=== PATIENT | female | born 1945 | race Caucasian/White ===

== ENCOUNTER → 2016-08-13 | Outpatient (CLI) | payer OTHER, MEDICARE | LOC: FIMAGING 13:23 | PROVIDERS: ATTEND Physician Assistant | DX: S83.511A Sprain of anterior cruciate ligament of right knee, initial encounter (principal); S83.271A Complex tear of lateral meniscus, current injury, right knee, initial encounter; S83.241A Other tear of medial meniscus, current injury, right knee, initial encounter; M22.41 Chondromalacia patellae, right knee; M25.461 Effusion, right knee; M71.21 Synovial cyst of popliteal space [Baker], right knee; M70.41 Prepatellar bursitis, right knee ==

== ENCOUNTER → 2016-09-12 | Outpatient (CLI) | payer OTHER, MEDICARE | LOC: BMCIMAGING 10:01 | DX: Z12.31 Encounter for screening mammogram for malignant neoplasm of breast (principal); Z80.3 Family history of malignant neoplasm of breast | CPT/HCPCS: G0202 ==

== ENCOUNTER 2017-04-29 09:01 | Inpatient (IN) | payer OTHER, MEDICARE ==
--- NOTE | 2017-04-29 09:39 | CPEKG ---
Heart Rate: 83 RR Interval: 723 P-R Interval: 106 QRSD Interval: 80 QT Interval: 356 QTC Interval: 419 P Mason: 41 QRS Mason: 14 T Wave Mason: 94 EKG Severity - ABNORMAL ECG - EKG Impression: SINUS RHYTHM EKG Impression: SHORT MN INTERVAL, ACCELERATED AV CONDUCTION EKG Impression: CONSIDER POSTERIOR INFARCT EKG Impression: NONSPECIFIC REPOL ABNORMALITY, DIFFUSE LEADS Electronically Signed By: Michelet Ivey 29-Apr-2017 11:27:23
--- NOTE | 2017-04-29 09:58 | EDPHY ---
H & P Time Seen by Provider: 04/29/17 09:20 HPI/ROS: Chief complaint. Hard to breathe HPI. Patient is a 72-year-old female presents emergency department with shortness of breath for 2-3 weeks. She has had back and chest pain for 2 weeks. She has a occasional abdominal pain in the left lower quadrant. She has blood in her stool. She has had exertional dyspnea. Back pain is worse with lying down. Decreased appetite. No fever. No vomiting or diarrhea. Unsure about urinary symptoms but thinks painful urination. The chest is more sore after a chiropractic visit. She is not really coughing. No unusual leg pain or swelling. Colonoscopy within the last 6 months ROS Constitutional. no fever/chills, no weakness Eyes. no problems with vision ENT. no sore throat, no nasal drainage Cardiovascular. Chest pain after chiropractor the Respiratory. Shortness of breath without cough Abdominal. Left lower quadrant abdominal pain with blood in stool . Painful urination MS. Back pain Skin. no rash Lymph. no swollen glands Neuro. no headache, no dizziness, no difficulty walking or with speech Past Medical/Surgical History: Past medical history significant for angina, diverticulosis, colitis, chronic back pain Social History: , nonsmoker, no alcohol Smoking Status: Former smoker Physical Exam: General Appearance: Alert well-developed female moderate distress initial vital signs show blood pressure 150/100. Eyes: Pupils equal and round no pallor or injection. ENT, Mouth: Mucous membranes are moist. Respiratory: There are no retractions, lungs are clear to auscultation. Cardiovascular: Regular rate and rhythm. Gastrointestinal: Abdomen is soft with left lower quadrant pain. Rectal exam shows non thrombosed hemorrhoid. Stool is brown Neurological: Awake and alert, sensory and motor exams grossly normal. Skin: Warm and dry, no rashes. Musculoskeletal: Neck is supple nontender. Extremities symmetrical, full range of motion. Psychiatric: Patient is oriented X 3, there is no agitation. Constitutional: Initial Vital Signs Temperature (C) 36.5 C 04/29/17 09:03 Heart Rate 92 04/29/17 09:03 Respiratory Rate 20 04/29/17 09:03 Blood Pressure 150/100 H 04/29/17 09:03 O2 Sat (%) 96 04/29/17 09:03 O2 Delivery Mode Nasal Cannula O2 (L/minute) 2 Allergies/Adverse Reactions: Sulfa (Sulfonamide Antibiotics) Allergy (Mild, Verified 04/29/17 09:13) Rash Home Medications: Medication Instructions Recorded Aspirin EC [Aspirin EC 81 mg (*)] 81 mg PO HS 04/29/17 Budesonide [Budesonide EC] 3 mg PO BID 04/29/17 Calcium Carbonate [Oyster Shell 1,000 mg PO DAILY 04/29/17 Calcium 500 mg (*)] Cholecalciferol Vit D3 [Vitamin D3 2,000 units PO DAILY 04/29/17 2000 units tab (OTC)] DULoxetine [Cymbalta 30 MG (*)] 30 mg PO BID 04/29/17 Docusate Sodium [Colace 100 MG (*)] 100 mg PO HS 04/29/17 Ferrous Sulfate [Ferrous Sulf 325 325 mg PO MWF 04/29/17 MG (*)] Glucosamine Sulfate [Glucosamine 1,000 mg PO DAILY 04/29/17 Sulfate 500 MG (*)] Herbals/Supplements -Info Only 1 ea PO DAILY 04/29/17 Losartan Potassium [Cozaar 25 mg 25 mg PO BID 04/29/17 (*)] Metoprolol Succinate Xr [Toprol Xl 50 mg PO BID 04/29/17 50 mg (*)] Rosuvastatin Calcium [Crestor 10mg 10 mg PO HS 04/29/17 (RX)] Vitamin B Complex [B Complex] 1 each PO DAILY 04/29/17 Medical Decision Making - Diagnostics EKG Interpretation: EKG interpreted by me shows normal sinus rhythm with short DE interval. Left axis deviation. No significant ST elevation or depression. No arrhythmia. The rate is 83. Imaging Results: Imaging Impressions Abdomen CT 04/29/17 10:07 Impression: 1. Coronary artery atherosclerotic calcifications. 2. Status post cholecystectomy. 3. Hepatic steatosis. 4. Status post hysterectomy. 5. Moderate sigmoid colon diverticulosis, with no active diverticulitis. 6. Nonobstructive bilateral nephrolithiasis. 7. Sigmoid-shaped thoracolumbar scoliosis with advanced degenerative change throughout the lumbar spine. There is no acute compression deformity. There is a moderate central canal stenosis at L1-L2 where a dorsal disk osteophyte complex is noted. Findings were discussed with LYUDMILA PENDLETON MD at 13:21, on 04/29/2017. Chest X-Ray 04/29/17 10:07 Impression: Mild central perihilar bronchial wall thickening, with no focal infiltrate or evidence of CHF. Procedures: IV normal saline, monitor. ED Course/Re-evaluation: Shortly after admission into the emergency department the patient's blood pressure drop significantly. She is given a septic workup and the initial lactate is positive. She is given 30 milliliter/kilogram fluid bolus and responds nicely to this. We find the patient has UTI. She started on Rocephin IV Differential Diagnosis: No source for the heme-positive stool. It is possible this represents diverticulitis. I considered pneumonia as well as acute coronary syndrome. Patient has a UTI with an elevated lactate responding nicely to fluid bolus Critical Care Time: Critical care time exclusive procedures 40 min - Data Points Laboratory Results: Laboratory Results 04/29/17 09:54 04/29/17 09:54 04/29/17 04/29/17 04/29/17 12:15 11:05 10:20 WBC RBC Hgb Hct MCV MCH MCHC RDW Plt Count MPV Neut % (Auto) Lymph % (Auto) [place] % (Auto) Eos % (Auto) Baso % (Auto) Nucleat RBC Rel Count Absolute Neuts (auto) Absolute Lymphs (auto) Absolute Monos (auto) Absolute Eos (auto) Absolute Basos (auto) Absolute Nucleated RBC Immature Gran % Immature Gran # PT INR APTT VBG Lactic Acid 1.2 mmol/L mmol/L 3.0 mmol/L H mmol/L (0.7-2.1) (0.7-2.1) Sodium Potassium Chloride Carbon Dioxide Anion Gap BUN Creatinine Estimated GFR Glucose Calcium Total Bilirubin Conjugated Bilirubin Unconjugated Bilirubin AST ALT Alkaline Phosphatase Troponin I NT-Pro-B Natriuret Pep Total Protein Albumin Urine Color KEEGAN Urine Appearance MODERATELY TURBID Urine pH 5.0 (5.0-7.5) Ur Specific [place] 1.018 (1.002-1.030) Urine Protein 2+ H (NEGATIVE) Urine Ketones NEGATIVE (NEGATIVE) Urine Blood 1+ H (NEGATIVE) Urine Nitrate NEGATIVE (NEGATIVE) Urine Bilirubin NEGATIVE (NEGATIVE) Urine Urobilinogen NEGATIVE EU EU (0.2-1.0) Ur Leukocyte Esterase 3+ H (NEGATIVE) Urine RBC 10-15 /hpf H /hpf (0-3) Urine WBC 50-182 /hpf H /hpf (0-3) Ur Epithelial Cells TRACE /lpf /lpf (NONE-1+) Hyaline Casts 15-25 /lpf H /lpf (0-1) Urine Mucus 2+ /lpf H /lpf (NONE-1+) Urine Glucose 1+ H (NEGATIVE) Stool Occult Bld Scrn 04/29/17 04/29/17 04/29/17 10:00 09:59 09:54 WBC RBC Hgb Hct MCV MCH MCHC RDW Plt Count MPV Neut % (Auto) Lymph % (Auto) [place] % (Auto) Eos % (Auto) Baso % (Auto) Nucleat RBC Rel Count Absolute Neuts (auto) Absolute Lymphs (auto) Absolute Monos (auto) Absolute Eos (auto) Absolute Basos (auto) Absolute Nucleated RBC Immature Gran % Immature Gran # PT 13.5 SEC SEC (12.0-15.0) INR 1.01 (0.83-1.16) APTT 25.3 SEC SEC (23.0-38.0) VBG Lactic Acid Sodium 139 mEq/L mEq/L (134-144) Potassium 4.3 mEq/L mEq/L (3.5-5.2) Chloride 105 mEq/L mEq/L (97-110) Carbon Dioxide 20 mEq/l L mEq/l (22-31) Anion Gap 14 mEq/L mEq/L (8-16) BUN 45 mg/dL H mg/dL (7-23) Creatinine 1.6 mg/dL H mg/dL (0.6-1.0) Estimated GFR 32 Glucose 165 mg/dL H mg/dL (70-100) Calcium 9.7 mg/dL mg/dL (8.5-10.4) Total Bilirubin 0.4 mg/dL mg/dL (0.1-1.4) Conjugated Bilirubin 0.3 mg/dL mg/dL (0.0-0.5) Unconjugated Bilirubin 0.1 mg/dL mg/dL (0.0-1.1) AST 25 IU/L IU/L (14-46) ALT 34 IU/L IU/L (9-52) Alkaline Phosphatase 50 IU/L IU/L (38-126) Troponin I < 0.012 ng/mL ng/mL (0.000-0.034) NT-Pro-B Natriuret Pep 176 pg/mL H pg/mL (0-125) Total Protein 5.7 g/dL L g/dL (6.3-8.2) Albumin 3.4 g/dL L g/dL (3.5-5.0) Urine Color Urine Appearance Urine pH Ur Specific [place] Urine Protein Urine Ketones Urine Blood Urine Nitrate Urine Bilirubin Urine Urobilinogen Ur Leukocyte Esterase Urine RBC Urine WBC Ur Epithelial Cells Hyaline Casts Urine Mucus Urine Glucose Stool Occult Bld Scrn POSITIVE H (NEGATIVE) 04/29/17 04/29/17 09:54 09:49 WBC 13.30 10^3/uL H 10^3/uL (3.80-9.50) RBC 2.95 10^6/uL L 10^6/uL (4.18-5.33) Hgb 9.6 g/dL L g/dL (12.6-16.3) Hct 29.2 % L % (38.0-47.0) MCV 99.0 fL fL (81.5-99.8) MCH 32.5 pg pg (27.9-34.1) MCHC 32.9 g/dL g/dL (32.4-36.7) RDW 13.3 % % (11.5-15.2) Plt Count 237 10^3/uL 10^3/uL (150-400) MPV 10.0 fL fL (8.7-11.7) Neut % (Auto) 78.2 % H % (39.3-74.2) Lymph % (Auto) 12.6 % L % (15.0-45.0) [place] % (Auto) 7.4 % % (4.5-13.0) Eos % (Auto) 1.0 % % (0.6-7.6) Baso % (Auto) 0.3 % % (0.3-1.7) Nucleat RBC Rel Count 0.0 % % (0.0-0.2) Absolute Neuts (auto) 10.40 10^3/uL H 10^3/uL (1.70-6.50) Absolute Lymphs (auto) 1.68 10^3/uL 10^3/uL (1.00-3.00) Absolute Monos (auto) 0.98 10^3/uL H 10^3/uL (0.30-0.80) Absolute Eos (auto) 0.13 10^3/uL 10^3/uL (0.03-0.40) Absolute Basos (auto) 0.04 10^3/uL 10^3/uL (0.02-0.10) Absolute Nucleated RBC 0.00 10^3/uL 10^3/uL (0-0.01) Immature Gran % 0.5 % % (0.0-1.1) Immature Gran # 0.07 10^3/uL 10^3/uL (0.00-0.10) PT INR APTT VBG Lactic Acid Sodium Potassium Chloride Carbon Dioxide Anion Gap BUN Creatinine Estimated GFR Glucose Calcium Total Bilirubin 0.4 mg/dL mg/dL (0.1-1.4) Conjugated Bilirubin Unconjugated Bilirubin AST ALT Alkaline Phosphatase Troponin I NT-Pro-B Natriuret Pep Total Protein Albumin Urine Color Urine Appearance Urine pH Ur Specific [place] Urine Protein Urine Ketones Urine Blood Urine Nitrate Urine Bilirubin Urine Urobilinogen Ur Leukocyte Esterase Urine RBC Urine WBC Ur Epithelial Cells Hyaline Casts Urine Mucus Urine Glucose Stool Occult Bld Scrn Microbiology Results: MICROBIOLOGY 04/29/17 11:10 Nasal, Sinus - Swab Respiratory Panel (PCR) - Final Human Rhinovirus/Enterovirus Medications Given: Discontinued Medications Sodium Chloride (Ns) 1,000 mls @ 0 mls/hr IV ONCE ONE PRN Reason: Wide Open Stop: 04/29/17 10:01 Last Admin: 04/29/17 10:08 Dose: 1,000 mls Sodium Chloride (Ns) 1,000 mls @ 0 mls/hr IV EDNOW ONE; Wide Open PRN Reason: Protocol Stop: 04/29/17 10:08 Last Admin: 04/29/17 10:16 Dose: 1,000 mls Sodium Chloride (Ns) 2,700 mls @ 5,400 mls/hr 30 ml/kg infuse over 30 min ( 2700 ml) IV EDNOW ONE PRN Reason: Protocol Stop: 04/29/17 11:05 Last Admin: 04/29/17 10:54 Dose: 2,700 mls Ceftriaxone Sodium/Dextrose (Rocephin 1 Gm (Premix)) 50 mls @ 100 mls/hr IV EDNOW ONE PRN Reason: Protocol Stop: 04/29/17 12:18 Last Admin: 12/18/17 11:54 Dose: 50 mls Morphine Sulfate (Morphine) 4 mg IVP EDNOW ONE Stop: 04/29/17 11:49 Last Admin: 04/29/17 11:55 Dose: 4 mg Departure - Departure Disposition: [facility] Inpatient Acute Clinical Impression: Elevated serum lactate dehydrogenase Urinary tract infection Qualifiers: Urinary tract infection type: site unspecified GI bleed Qualifiers: GI bleed type/associated pathology: melena Qualified Code(s): K92.1 - Melena Hypotension Qualifiers: Hypotension type: other hypotension type Qualified Code(s): I95.89 - Other hypotension Condition: Fair
[2017-04-29] MEDS ORDERED: NS 1,000 ML IV ONE ×2 (10:00→10:07)
[2017-04-29 10:15] LABS: PLATELET COUNT 237 10^3/uL (150-400)
[2017-04-29 10:34] LABS: INR 1.01 (0.83-1.16); PROTIME(PATIENT) 13.5 SEC (12.0-15.0)
[2017-04-29] MEDS ORDERED: NS 2,700 ML IV ONE (10:36)
[2017-04-29] MEDS ORDERED: IOPAMIDOL (ISOVUE-300) 100 ML BTL ONE (10:45)
[2017-04-29] MEDS ORDERED: ONDANSETRON DISINTEGRATING 4 MG TAB PO PRN (16:25)
[2017-04-29] MEDS ORDERED: ONDANSETRON 4 MG/2 ML VIAL IVP PRN (16:25)
[2017-04-29] MEDS ORDERED: ACETAMINOPHEN 325 MG TAB PO PRN (16:25)
--- NOTE | 2017-04-29 17:20 | GHP ---
[f rep st] HISTORY AND PHYSICAL DATE OF ADMISSION: 04/29/2017 CHIEF COMPLAINT: Shortness of breath, back pain. HISTORY OF PRESENT ILLNESS: 72-year-old female presents with shortness of breath and back pain. The se have been going on for a week or two; however, the pain got worse today, and she decided to come t o the emergency department. Shortness of breath is associated with a cough; she has had many sick co ntacts on a recent cruise. Her is also sick with a lingering cough. She feels as though her breathing is labored and difficult. She has not taken anything for this. She has had some back rodolfo n as well that started about 3 weeks ago. She had seen a chiropractor, who did some adjustments, but did not really help her back pain. She denies any dysuria, frequency, foul-smelling urine. She has been taking a lot of meloxicam recently for her back pain. PAST MEDICAL/SURGICAL HISTORY: 1. Coronary arteries, status post 3 stents. The last was more than 10 years ago. She has followed with Dr. Jerome, had a normal stress test within the last year. 2. Diverticulosis. 3. Microscopic colitis, followed by Dr. Castillo, diagnosed about a year ago. 4. Back pain. 5. Chronic kidney disease. 6. Hypomagnesemia. 7. Depression. MEDICATIONS: Please see medication reconciliation. ALLERGIES: Sulfa. FAMILY HISTORY: Reviewed and noncontributory. SOCIAL HISTORY: She recently took a cruise. She is . REVIEW OF SYSTEMS: A 10-point review of systems is conducted and is negative except per HPI. PHYSICAL EXAM: VITAL SIGNS: Blood pressure 126/61, heart rate 77, respiration rate 19, satting 97% on 2 L. Temperature is 36.7. GENERAL: The patient is a pleasant, obese female who is resting comfo rtably in bed. She is lying on her right side. HEENT: Shows her to be normocephalic, atraumatic. CARDIOVASCULAR: Regular rate and rhythm. No murmurs, rubs, or gallops. She has diminished S1 and S 2. PULMONARY: Shows her to be breathing comfortably, in no acute distress. LUNGS: Clear to auscul tation bilaterally. ABDOMEN: Soft, nontender, nondistended. BACK: Shows her to be tender to palpa tion in the middle part of her back. SKIN: No rash. GENITOURINARY: No Best. NEUROLOGIC: Shows her to be alert and oriented x3. She is moving all extremities. She has a nonfocal neurologic exam. PSYCHIATRIC: Normal mood and affect. LABORATORY DATA: Creatinine is 1.6, BUN is 45, potassium is 4.3, troponin is negative. White count is 13,000, hemoglobin is 9.6. Urine shows 50 to 182 whites, 3+ leukocyte esterase, 1+ blood. Fecal occult blood test is positive. DATA: 1. I discussed this with Dr. Ivey via Adriana Motley'[place]. Will admit to med/surg. 2. I personally reviewed and interpreted her chest x-ray. This shows slight increased perihilar mar kings. No focal infiltrate. 3. Abdominal CT shows multiple chronic findings, nothing acute. Notably, no hydronephrosis. 4. EKG shows sinus rhythm. Early R-wave progression. IMPRESSION AND PLAN: 72-year-old female with multiple somewhat nonspecific complaints. 1. Respiratory issues: She has positive rhinovirus/enterovirus. She will be placed on precautions. There is no clear infiltrate on her x-ray. Supportive measures, bronchodilators at this point. 2. Qtngh-wo-acwwpug kidney injury: Creatinine is up to 1.6. The baseline is probably about 1.2. S he has been taking a lot of meloxicam. Has some signs of chronic kidney disease on her CT scan. Marco A l hydrate her, check urine sodium and creatinine, recheck her kidney function tomorrow. 3. Urinary tract infection/back pain: I am not sure if the back pain is due to urinary tract infect ion, but I think, given this, it is reasonable to treat. I have checked a procalcitonin as well. I note that she has an elevated white count. Will give her Rocephin, follow urinary culture as well. If back pain is not improving, would consider musculoskeletal causes, which I think is quite likely. 4. Hypotension: This was transient in the emergency department, responded well to IV fluids. I hav e held her losartan for kidney injury, will hold her metoprolol for now, but would restart soon if he r blood pressure rises. 5. Coronary artery disease, status post stents: Not having any chest pain right now. EKG with noth ing acute. Will continue her aspirin, statin. Restart other cardiac medications when possible. 6. Microscopic colitis: She is on budesonide. She follows with Dr. Castillo. She did have a positiv e fecal occult blood test, which I think may be related. 7. Anemia: We do not have any recents in our system here, though I suspect that this is chronic, as she is on iron. Will just recheck tomorrow. I would not be surprised if this drops slightly, given the hydration that she has gotten. 8. Code status: She believes she is do not resuscitate, though she is not sure. She would like to be made full code until she is able to find her paperwork. 9. Venous thromboembolism risk: She is moderate; however, with the anemia and positive fecal occult blood test, will place her on SCDs and hold pharmacologic prophylaxis at this point. 10. Hypomagnesemia: Will check magnesium now. She tells me this is due to poor absorption. /[id number]/MODL
[2017-04-29] MEDS: 1/2 NS 1,000 ML IV SCH (18:27)
[2017-04-29] MEDS ORDERED: MAGNESIUM SULF 2 GM/WATER 50 ML IV ONE ×3 (18:29→23:45)
[2017-04-29] MEDS ORDERED: PROTOCOL MAGNESIUM 1 DOSE IV PRN (18:29)
[2017-04-29] MEDS: ASPIRIN EC 81 MG TAB PO SCH (20:40)
[2017-04-29] MEDS: BUDESONIDE 3 MG EC CAP PO SCH (20:40)
[2017-04-29] MEDS: DULoxetine 30 MG CAP PO SCH (20:40)
[2017-04-29] MEDS: ROSUVASTATIN CALCIUM 10 MG TAB PO SCH (20:40)
[2017-04-29] MEDS: DOCUSATE SODIUM 100 MG CAP PO SCH (20:41)
[2017-04-29] MEDS: IPRATROPIUM/ALBUTEROL 3 ML DEYVIAL IH SCH (20:57)
[2017-04-29] MEDS ORDERED: METOPROLOL SUCCINATE XR 50 MG TAB PO SCH (21:00)
[2017-04-29] MEDS: oxyCODONE IR 5 MG TAB PO PRN (21:57)
[2017-04-30 05:18] LABS: PLATELET COUNT 178 10^3/uL (150-400)
[2017-04-30] MEDS: IPRATROPIUM/ALBUTEROL 3 ML DEYVIAL IH SCH ×4 (05:49→21:08)
[2017-04-30] MEDS ORDERED: MAGNESIUM SULF 2 GM/WATER 50 ML IV ONE (08:37)
[2017-04-30] MEDS ORDERED: ENOXAPARIN 30 MG/0.3 ML SYR SC SCH (09:00)
[2017-04-30] MEDS: BUDESONIDE 3 MG EC CAP PO SCH ×2 (09:27→20:27)
[2017-04-30] MEDS: GLUCOSAMINE SULF 500 MG CAP PO SCH (09:33)
[2017-04-30] MEDS: DULoxetine 30 MG CAP PO SCH ×2 (09:33→20:28)
[2017-04-30] MEDS: oxyCODONE IR 5 MG TAB PO PRN ×3 (11:37→21:31)
[2017-04-30] MEDS: HYDROmorphone HCL/NS/PF 0.4 MG/2 ML SYR IVP PRN ×2 (13:50→23:45)
[2017-04-30] MEDS ORDERED: LR 1,000 ML IV SCH ×2 (15:30→20:00)
--- NOTE | 2017-04-30 16:49 | ASMTCMCOM ---
CM Note CM Note Notes: Pt admtited with UTI, respiratory issues. Hx CAD, depression, falls at home. Currently on IV rocephin. Refused PT today. CM will follow for any d/c needs. Date Signed: 04/30/2017 04:49 PM Electronically Signed By:HARISH Reyes
[2017-04-30] MEDS ORDERED: GADOBUTROL 10 ML VIAL IVP ONE (17:34)
--- NOTE | 2017-04-30 19:49 | HOSPPROG ---
Hospitalist Progress Note Assessment/Plan: CRITICAL CARE VISIT NOTE Greater than 60 min of critical care time spent with the patient on 3 visits today DIAGNOSES: -severe be back pain with pain starting in the area of the spine at approximately T10-T11, with the pain radiating around both sides of the lower ribcage coming up to the low sternal area. Cause of this pain currently uncertain but I would favor a post viral costal chondritis, see discussion below -tachycardia, hypotension, high white blood cell count and metabolic acidosis consistent with acute sepsis -metabolic acidosis -pyuria suggestive of urinary tract infection with cultures pending -normocytic anemia, worsening, uncertain cause with no evidence of bleeding anywhere (I did review her abdominal CT scan and see no evidence of bleeding on that study and there is no evidence of bleeding on the MRI study that I did today) -viral upper respiratory tract infection with rhino virus, no evidence of pneumonia at this time The location of the patient's back pain along with the tenderness to me are most suggestive of a chest wall pain likely a postviral inflammatory syndrome. She does have a CT scan of the abdomen and I can see the repeat in the spinal segment involved with no particular abnormality seen. I did also order an MRI scan to make sure she does not have evidence of diskitis or osteomyelitis and that study shows no evidence of spinal or chest wall infection or tumor or other explanation of her pain. However the patient does have some tachycardia, shortness of breath and a cough and there is on my questioning with her a little bit of a pleuritic component to her pain, such that I could not entirely rule out pulmonary embolism at this time. I do not want to get another contrast CT right now without rechecking her renal function given her hemodynamics and waiting for a basic metabolic panel to come back. If the basic metabolic panel is looking good I will get a CT chest tonight to rule out PE. The patient does have tachycardia that is persisting after a L of lactate Ringer 's bolus given this afternoon, does have elevated white blood cell count, does have metabolic acidosis suggesting sepsis. She was somewhat hypotensive initially in the ER as well. She does have some pyuria though no direct urinary symptoms. One could consider the possibility of her back pain being due to pyelonephritis but when I look at her CT scan there is no evidence thereof pyelonephritis on either side and her tenderness on examination is higher than I would expect for pyelonephritis. Nonetheless I think she should be treated empirically with antibiotics and I am giving her more fluid resuscitation efforts right now and again getting another metabolic panel to recheck her acidosis and her renal function. At this time I do not see any other sign of other infectious sites or illnesses that could contribute to the possible diagnosis of sepsis. In order to treat her pain I will add some prednisone at this time as I think it is an inflammatory pain, and would consider possibly adding some Celebrex depending on her renal function, waiting for repeat metabolic panel. In addition she has onset of significant anemia. I am not certain why she is having so much anemia here. We have no recent blood cell counts to compare to, the last 1 available here being from 2013. The change in anemia overnight may be due to dilution from IV fluids. There is no sign of bleeding and nothing at the moment to suggest hemolysis but will need to check for any signs of that. Will need to recheck her hemoglobin, and given the level of hemoglobin will get a type and cross and would place we need to do any transfusing. Will Hemoccult stools if she has them. Watch for any further signs of bleeding. She is normocytic but will check iron levels in the morning as well. SUBJECTIVE: Still with significant pain in fact her back pain is getting worse. She points to me to her T10-11 area and with the pain coming from the center of her back around both sides to the front and moving superior in the front to the low sternum. I am able examining her to get her to admit that there is a mild pleuritic component to this pain. The pain does not increase with any other movements. It is not very responsive so far to narcotic analgesic that she has had here. She still has mild cough and some mild dyspnea as well and feels fairly ill but is not having rigors. OBJECTIVE Vitals reviewed: Still quite tachycardic this afternoon after a L of lactated Ringer's bolus with pulse 118, blood pressures respirations and temp is remain normal Rn Imcu, my review: Sinus tachycardia Exam: alert oriented looks fairly uncomfortable and mildly anxious skin warm dry color ok resps not labored lungs clear BSs heart regular abd soft nondistended nontender, bowel sounds present limbs warm, no edema There is no tenderness at all over the spine and she moves spine without increase in pain. There is exquisite tenderness to palpation or pressure along the lowest portion of the ribcage left and right from just lateral to the spine around to the junction with the bottom of the sternum. There is a little bit of sternal tenderness to. There is no inflammatory sign otherwise and no visible abnormalities. Her respirations are slightly shallow. There is notably much milder pain at the costovertebral angles below the ribs on left and right. iv site ok Lab take data: The initial chemistry this morning shows some improvement in renal function a slightly lower CO2 with ongoing metabolic acidosis, MRI of thoracic spine with contrast, I reviewed the images with Dr. Caba: No evidence of diskitis osteomyelitis or abscess or other signs of infection or cause of the pain as described by the patient at this time. Objective: Vital Signs Temp Pulse Resp BP Pulse Ox 36.6 C 95 18 125/69 H 95 04/30/17 15:56 04/30/17 15:56 04/30/17 15:56 04/30/17 15:56 04/30/17 15:56 Laboratory Results 04/30/17 05:00 04/30/17 05:00 04/29/17 04/30/17 05/01/17 06:59 06:59 06:59 Intake Total 3914 1383 Output Total 950 600 Balance 2964 783 PT 13.5 SEC (12.0-15.0) 04/29/17 09:59 INR 1.01 (0.83-1.16) 04/29/17 09:59 ICD10 Worksheet Patient Problems: Problems Problem Status Onset Elevated serum lactate dehydrogenase Acute GI bleed Acute Hypotension Acute Urinary tract infection Acute
[2017-04-30] MEDS ORDERED: methylPREDNISolone SOD SUCC 40 MG/ML VIAL IVP ONE (20:15)
[2017-04-30] MEDS: ASPIRIN EC 81 MG TAB PO SCH (20:27)
[2017-04-30] MEDS: DOCUSATE SODIUM 100 MG CAP PO SCH (20:28)
[2017-04-30] MEDS: ROSUVASTATIN CALCIUM 10 MG TAB PO SCH (21:32)
[2017-04-30] MEDS ORDERED: IOPAMIDOL (ISOVUE 370) 100 ML BTL IV ONE (22:13)
[2017-05-01] MEDS: oxyCODONE IR 5 MG TAB PO PRN ×5 (00:35→22:03)
[2017-05-01] MEDS: HYDROmorphone HCL/NS/PF 0.4 MG/2 ML SYR IVP PRN (03:56)
[2017-05-01] MEDS: IPRATROPIUM/ALBUTEROL 3 ML DEYVIAL IH SCH ×3 (05:05→16:14)
[2017-05-01 05:56] LABS: PLATELET COUNT 177 10^3/uL (150-400)
--- NOTE | 2017-05-01 09:08 | PDMN ---
Medical Necessity Medical necessity: change to IP; los>2mn for severe back pain, sepsis w/ tachycardia, hypotension, and elevated wbc, pyuria r/o UTI, worsening anemia of uncertain cause, metabolic acidosis, and viral URI; comorbid CAD, colitis, and CKD; per order and progress note 04/30/17
[2017-05-01] MEDS: GLUCOSAMINE SULF 500 MG CAP PO SCH (09:44)
[2017-05-01] MEDS: DULoxetine 30 MG CAP PO SCH ×2 (09:44→20:03)
[2017-05-01] MEDS: FERROUS SULFATE 325 MG TAB PO SCH (09:55)
[2017-05-01] MEDS: BUDESONIDE 3 MG EC CAP PO SCH ×2 (09:56→20:01)
[2017-05-01] MEDS: PANTOPRAZOLE SODIUM 40 MG VIAL IVP SCH ×2 (11:36→20:01)
[2017-05-01] MEDS ORDERED: LR 1,000 ML IV ONE (14:51)
--- NOTE | 2017-05-01 14:53 | PDPROPOC ---
Sedation Plan of Care Sedation Plan of Care: vital signs stable, mental status noted, patient educated of risks, benefits, alternatives, patient can tolerate sedation ASA Classification: ASA 2 Planned drugs: fentanyl, midazolam Mallampati Score: Class 2 Mallampati Reference Image: Patient passed 3-3-2 rule?: Yes
[2017-05-01] MEDS ORDERED: MIDAZOLAM 2 MG/2 ML VIAL ONE (14:54)
[2017-05-01] MEDS ORDERED: BENZOCAINE UNIT DOSE SPRAY HURRICAINE MM ONE (14:55)
[2017-05-01] MEDS ORDERED: fentaNYL 100 MCG/2 ML INJ ONE (14:55)
--- NOTE | 2017-05-01 15:27 | POSTOPPROG ---
Post Op Note Date of Operation: 05/01/17 Surgeon: Ramiro Castillo Anesthesia: IV Sedation Pre-op Diagnosis: GI bleed Post-op Diagnosis: duodenal ulcer. Procedure: EGD/BX Findings: same Inf/Abcess present in the surg proc area at time of surgery?: No Depth: Superfical (Skin SQ) EBL: Minimal
--- NOTE | 2017-05-01 15:31 | GIREPORT ---
[facility] Surgical Services - Endoscopy Department Patient Name: Safia Naranjo Procedure Date: 05/01/2017 3:01 PM Patient Type: Inpatient Attending MD/ ER Physician: Ramiro Castillo MD Procedure: Upper GI endoscopy Indications: Melena Providers: Ramiro Castillo MD Medicines: Fentanyl 100 micrograms IV, Midazolam 4 mg IV Complications: No immediate complications. Description of Procedure: After obtaining informed consent, the endoscope was passed under direct vision. Throughout the procedure, the patient's blood pressure, pulse, and oxygen saturations were monitored continuously. The Endoscope was intro duced through the mouth, and advanced to the third part of duodenum. The uppe r GI endoscopy was accomplished with ease. The patient tolerated the procedu re well. Findings: One non-bleeding cratered duodenal ulcer with no stigmata of bleeding w as found in the first portion of the duodenum. The lesion was 5 mm in larg est dimension. Biopsies were taken with a cold forceps for Helicobacter pyl cody testing. Verification of patient identification for the specimen was do ne. Estimated blood loss: none. The exam was otherwise without abnormality. Estimated Blood Loss: Estimated blood loss: none. Post Op Diagnosis: - One non-bleeding duodenal ulcer with no stigmata of bleeding. Biopsie d. - The examination was otherwise normal. Recommendation: - [facility]. - Resume regular diet. - Continue present medications. - Await pathology results. Attending Participation: I personally performed the entire procedure. Ramiro Castillo MD Ramiro Castillo MD 05/01/2017 3:31:29 PM This report has been signed electronicallyRobaureliano Castillo MD Number of Addenda: 0 Note Initiated On: 05/01/2017 3:01 PM [email or web address]
[2017-05-01] MEDS ORDERED: IPRATROPIUM/ALBUTEROL 3 ML DEYVIAL IH PRN (17:44)
--- NOTE | 2017-05-01 17:56 | HOSPPROG ---
Hospitalist Progress Note Assessment/Plan: Following last night's visits and my note in the chart of last night, became clear the patient was bleeding in becoming more anemic. She was given 2 U of red blood cell transfusion last night and is having stable vital signs since then. With history she now gives of melenic stools for 2 weeks I suspect bleeding ulcer and call Dr. Raheem Castillo he coming in and performed an upper endoscopy showing a large gastric ulcer. DIAGNOSES: -acute upper GI bleed due to gastric ulcer complicated by hypotension and tachycardia, -severe post hemorrhagic anemia requiring transfusion of red blood cells -metabolic acidosis -pyuria suggestive of possible urinary tract infection with cultures pending but no specific urinary symptoms per se -marked pain along both costal margins circumferentially, consider possible postviral costochondritis but etiology not entirely certain -better after some Solu-Medrol given last evening -CT scan with no evidence of PE or other cause, MRI scan with no evidence of diskitis or other spine related process -viral upper respiratory tract infection with rhino virus, no evidence of pneumonia at this time -newly identified 5 mm lung nodule on CT scan will need surveillance CT scanning in future The patient is now on Protonix, with slight decrease in hemoglobin today after transfusions last night but better than were restarted last evening. Her ulcers was nonbleeding at the time of endoscopy but will require ongoing surveillance with vital signs and hemoglobin. Her vital signs are notably better after transfusion last night. SUBJECTIVE: She has not noticed any specific bleeding today. However the does now tell me when I ask that she has had melenic stools for about 2 weeks. This without any abdominal pain nausea or vomiting. Her costal margin pain is somewhat improved after a dose of Solu-Medrol last night she is not short of breath and still has no urinary symptoms OBJECTIVE Vitals reviewed: Vital signs notably better after transfusion last night Manager Rental, my review: Sinus Exam: alert oriented looks notably more comfortable and less anxious today skin warm dry color ok resps not labored lungs clear BSs heart regular abd soft nondistended nontender, bowel sounds present limbs warm, no edema Still some tenderness along the costal margins bilaterally iv site ok Lab take data: Hemoglobin got as low as 5 last night, then was up to 9 after some transfusion now at 8.7 CT scan of chest I reviewed images, no evidence of pre embolism or other acute abnormalities There is a small half cm pulmonary nodule that will indicate follow-up CT scanning; emphysema is noted Objective: Vital Signs Temp Pulse Resp BP Pulse Ox 36.8 C 84 18 132/109 H 98 05/01/17 15:47 05/01/17 14:45 05/01/17 15:40 05/01/17 15:40 05/01/17 15:47 Laboratory Results 05/01/17 11:50 05/01/17 05:33 04/30/17 05/01/17 05/02/17 06:59 06:59 06:59 Intake Total 550 400 Output Total 1550 150 Balance -1000 250 PT 13.5 SEC (12.0-15.0) 04/29/17 09:59 INR 1.01 (0.83-1.16) 04/29/17 09:59 - Time Spent With Patient Time Spent with Patient: greater than 35 minutes Time Spent with Patient: Greater than 35 minutes spent on this patients care, greater than 50% of time spent counseling, educating, and coordinating care regarding the above mentioned plan. ICD10 Worksheet Patient Problems: Problems Problem Status Onset Elevated serum lactate dehydrogenase Acute GI bleed Acute Hypotension Acute Urinary tract infection Acute
[2017-05-01] MEDS ORDERED: methylPREDNISolone SOD SUCC 40 MG/ML VIAL IVP ONE (19:42)
[2017-05-01] MEDS: ROSUVASTATIN CALCIUM 10 MG TAB PO SCH (20:01)
[2017-05-01] MEDS: DOCUSATE SODIUM 100 MG CAP PO SCH (20:03)
[2017-05-01] MEDS: 1/2 NS 1,000 ML IV SCH (20:07)
[2017-05-02] MEDS: oxyCODONE IR 5 MG TAB PO PRN ×5 (01:09→21:59)
--- NOTE | 2017-05-02 07:30 | SOAPPROG ---
SOAP Progress Note Assessment/Plan: Assessment:Stable overnight. Will need 12 weeks of PPIs. Await HP testing result. Please call for further GI issues. Plan: 05/02/17 07:29 Objective: Vital Signs Temp Pulse Resp BP Pulse Ox 36.6 C 110 H 18 137/63 H 96 05/02/17 04:37 05/02/17 04:37 05/02/17 04:37 05/02/17 04:37 05/02/17 04:37 Laboratory Results 05/01/17 23:55 05/01/17 05:33 05/01/17 05/02/17 05/03/17 05:59 05:59 05:59 Intake Total 550 1109 Output Total 1150 2100 Balance -600 -991 PT 13.5 SEC (12.0-15.0) 04/29/17 09:59 INR 1.01 (0.83-1.16) 04/29/17 09:59 ICD10 Worksheet Patient Problems: Problems Problem Status Onset Elevated serum lactate dehydrogenase Acute GI bleed Acute Hypotension Acute Urinary tract infection Acute
[2017-05-02 08:15] LABS: PLATELET COUNT 177 10^3/uL (150-400)
[2017-05-02] MEDS: BUDESONIDE 3 MG EC CAP PO SCH ×2 (11:01→21:58)
[2017-05-02] MEDS: DULoxetine 30 MG CAP PO SCH ×2 (11:02→21:57)
[2017-05-02] MEDS: PANTOPRAZOLE SODIUM 40 MG VIAL IVP SCH ×2 (11:02→21:58)
[2017-05-02] MEDS: GLUCOSAMINE SULF 500 MG CAP PO SCH (11:02)
[2017-05-02] MEDS ORDERED: MAGNESIUM SULF 2 GM/WATER 50 ML IV ONE (11:19)
[2017-05-02] MEDS ORDERED: VSL#3 1 EACH CAP PO SCH (14:00)
[2017-05-02] MEDS: DOCUSATE SODIUM 100 MG CAP PO SCH ×2 (14:39→21:58)
[2017-05-02] MEDS ORDERED: CALCIUM CARBONATE 500 MG CHEWABLE TAB PO PRN (14:41)
[2017-05-02] MEDS: VSL#3 1 EACH CAP PO SCH (15:13)
--- NOTE | 2017-05-02 16:10 | ASMTCMCOM ---
CM Note CM Note Notes: pt found to have gastric ulcer. She is still on IV ABX. CM will follow for DC needs. Date Signed: 05/02/2017 04:10 PM Electronically Signed By:Radha Ryan LCSW
--- NOTE | 2017-05-02 16:37 | SOAPPROG ---
SOAP Progress Note Assessment/Plan: 1. acute upper GI bleed due to gastric ulcer -s/p endoscopy with Dr Castillo GI, not actively bleeding -PPI bid x 12 weeks, o/p FU with GI -discussed care plan with Dr Castillo, OK to dc when tolerating diet/pain resolving/HGB stable (possible tomorrow) 2. severe anemia from acute blood loss -+ hemoccults - s/p PRBC -repeat hgb stable 3. metabolic acidosis -resolving 4. pyuria -started on ABX pending cultures -Cultures NTD, abx stopped 5. marked pain along both costal margins, etiology not entirely certain -better after Solu-Medrol, resolving/tolerating diet today 6. viral upper respiratory tract infection with rhino virus -no evidence of pneumonia at this time -droplet precautions 7. newly identified 5 mm lung nodule on CT scan -will need surveillance CT scanning in future PCP- Stone FULL CODE Dispo- hopeful dc tomorrow if hgb stable, pain resolved Subjective: Feeling better, eating, much less pain. Lots of questions/concerns from her, and family in room also. Objective: Vital Signs Temp Pulse Resp BP Pulse Ox 98.6 F 111 H 16 105/60 98 05/02/17 16:00 05/02/17 16:00 05/02/17 16:00 05/02/17 16:00 05/02/17 16:00 Laboratory Results 05/02/17 12:32 05/02/17 07:53 05/01/17 05/02/17 05/03/17 11:59 11:59 11:59 Intake Total 550 1509 Output Total 1700 1800 Balance -1150 -291 PT 13.5 SEC (12.0-15.0) 04/29/17 09:59 INR 1.01 (0.83-1.16) 04/29/17 09:59 - Time Spent With Patient Time Spent With Patient: 40 - Pending Discharge Pending Discharge Within 24 Hours: Yes Pending Discharge Date: 05/05/17 Pending Discharge Time: 11:00 Physical Exam - Physical Exam General Appearance: WD/WN, alert, no apparent distress EENT: normal ENT inspection Respiratory: chest non-tender, lungs clear, normal breath sounds, No respiratory distress Cardiac/Chest: regular rate, rhythm Abdomen: normal bowel sounds, non-tender, soft, No distended, No guarding Skin: warm/dry Neuro/Psych: alert, normal mood/affect, oriented x 3, No cognition abnormalities ICD10 Worksheet Patient Problems: Problems Problem Status Onset Elevated serum lactate dehydrogenase Acute GI bleed Acute Hypotension Acute Urinary tract infection Acute
[2017-05-02] MEDS: ROSUVASTATIN CALCIUM 10 MG TAB PO SCH (21:58)
[2017-05-03 04:35] LABS: PLATELET COUNT 165 10^3/uL (150-400)
[2017-05-03] MEDS: oxyCODONE IR 5 MG TAB PO PRN ×4 (09:12→21:56)
[2017-05-03] MEDS: BUDESONIDE 3 MG EC CAP PO SCH ×2 (09:21→21:56)
[2017-05-03] MEDS: VSL#3 1 EACH CAP PO SCH (09:22)
[2017-05-03] MEDS: DOCUSATE SODIUM 100 MG CAP PO SCH (09:22)
[2017-05-03] MEDS: FERROUS SULFATE 325 MG TAB PO SCH (09:22)
[2017-05-03] MEDS: GLUCOSAMINE SULF 500 MG CAP PO SCH (09:25)
[2017-05-03] MEDS: DULoxetine 30 MG CAP PO SCH ×2 (09:25→21:48)
[2017-05-03] MEDS ORDERED: POLYETHYLENE GLYCOL 3350 17 GM PKT PO PRN (09:50)
[2017-05-03] MEDS ORDERED: BISACODYL 10 MG SUPP PR PRN (09:50)
[2017-05-03] MEDS ORDERED: LACTULOSE 20 GM/30 ML UDCUP PO PRN (09:50)
[2017-05-03] MEDS: PANTOPRAZOLE SODIUM 40 MG TAB PO SCH ×2 (10:49→21:56)
[2017-05-03] MEDS: PANTOPRAZOLE SODIUM 40 MG VIAL IVP SCH (10:51)
--- NOTE | 2017-05-03 11:21 | PDHOMEO2F ---
Home Oxygen Face to Face Home Orders: I certify that a physician or a nurse practitioner or physician's administrative assistant has had a [id number]-[id number] encounter with this patient on the date of this order due to the diagnosis listed, which relates to the primary reason the patient requires home oxygen. Alternative treatments have been tried, or considered, and deemed ineffective. It is anticipated that supplemental oxygen will result in improvement with treatment. Home oxygen qualifying diagnosis: hypoxia SpO2 on room air (%): 84 Frequency of home oxygen needed: continuous Home oxygen liters per minute: 2 Home oxygen delivery device: nasal cannula Concentrator: No (already has one) E-tanks for mobility and back up: Yes If ordering portable O2, is the patient mobile in the home?: Yes I certify that, based on these findings, the home oxygen is medically necessary for this patient for the following length of time. Length of time home oxygen needed: 99 years Home Oxygen Comment: already has nocturnal home O2 through [facility]
[2017-05-03] MEDS: MAGNESIUM HYDROXIDE 30 ML UDCUP PO SCH (14:08)
--- NOTE | 2017-05-03 14:49 | ASMTCMCOM ---
CM Note CM Note Notes: Pt will benefit from PT/OT at [place]. Met with pt who chose [facility]. Verified pt's address and discussed home bound. [facility] at [phone]. Pt will likely DC tomorrow. [facility] alerted. Date Signed: 05/03/2017 02:48 PM Electronically Signed By:Radha Ryan LCSW
--- NOTE | 2017-05-03 15:41 | SOAPPROG ---
[facility] Progress Note Assessment/Plan: 1. acute upper GI bleed due to gastric ulcer -s/p endoscopy with Dr Castillo GI, not actively bleeding -PPI bid x 12 weeks, o/p FU with GI -discussed care plan with Dr Castillo yesterday, OK to dc when tolerating diet/ pain resolving/HGB stable, and he signed off -revwd her questions/concerns at length -sl down trend to hgb expected, but ? symptomatic vs deconditioned -pt/ot -may benefit from iron infusion (takes orally but has microscopic colitis so maybe poor absorption/not well tolerated) and repeat transfusion prior to discharge vs o/p FU with hematology 2. severe anemia from acute blood loss -+ hemoccults x 2 - s/p PRBC -repeat hgb stable with sl down trend (see above) 3. metabolic acidosis -resolved 4. pyuria -started on ABX pending cultures -Cultures NTD, abx stopped 5. marked pain along both costal margins, etiology not entirely certain -better after Solu-Medrol, resolving/tolerating diet 6. viral upper respiratory tract infection with rhino virus -no evidence of pneumonia and asymptomatic -O2 need stable -droplet precautions 7. newly identified 5 mm lung nodule on CT scan -will need surveillance CT scanning in future 8. R knee, no ACL -s/p surgery, still 'gives out/painful -PT Dispo- possible dc soon, but will depennd if further transfusion needed, will likely need home pt/ot PCP- Stone Subjective: Feeling weak in general. She had R knee surgery- still not recuperated well from that then all of this happened. Nervous to go home ( in room, he agrees as lots of stairs) Doesn't want to go to SNF/rehab. No CP. Some SOB when moving an occ light headed also. Very mild abd pain, taking regular diet and no heartburn. Objective: Vital Signs Temp Pulse Resp BP Pulse Ox 98.1 F 94 16 144/63 H 90 L 05/03/17 11:14 05/03/17 11:14 05/03/17 11:14 05/03/17 11:14 05/03/17 11:14 Laboratory Results 05/03/17 04:27 05/03/17 04:27 12/21/17 12/22/17 12/23/17 11:59 11:59 11:59 Intake Total 1509 1581 Output Total 1800 3850 200 Balance -291 -2269 -200 PT 13.5 SEC (12.0-15.0) 04/29/17 09:59 INR 1.01 (0.83-1.16) 04/29/17 09:59 - Time Spent With Patient Time Spent With Patient: 50 - Pending Discharge Pending Discharge Within 48 Hours: Yes Pending Discharge Date: 05/06/17 Pending Discharge Time: 11:00 Physical Exam - Physical Exam General Appearance: WD/WN, alert, no apparent distress Respiratory: lungs clear, normal breath sounds, No respiratory distress, No rhonchi, No wheezing Cardiac/Chest: regular rate, rhythm, No edema Abdomen: normal bowel sounds, non-tender, soft, No distended, No guarding, No rebound Skin: normal color, warm/dry Neuro/Psych: alert, normal mood/affect, oriented x 3, No cognition abnormalities ICD10 Worksheet Patient Problems: Problems Problem Status Onset Elevated serum lactate dehydrogenase Acute GI bleed Acute Hypotension Acute Urinary tract infection Acute
[2017-05-03] MEDS: ROSUVASTATIN CALCIUM 10 MG TAB PO SCH (21:56)
[2017-05-04] MEDS: oxyCODONE IR 5 MG TAB PO PRN ×2 (05:14→10:24)
[2017-05-04 08:39] VITALS: BP 126/62; PULSE 92; RESP 16
[2017-05-04] MEDS: VSL#3 1 EACH CAP PO SCH (10:15)
[2017-05-04] MEDS: PANTOPRAZOLE SODIUM 40 MG TAB PO SCH (10:16)
[2017-05-04] MEDS: BUDESONIDE 3 MG EC CAP PO SCH (10:17)
[2017-05-04] MEDS: DULoxetine 30 MG CAP PO SCH (10:18)
[2017-05-04] MEDS: GLUCOSAMINE SULF 500 MG CAP PO SCH (10:18)
[2017-05-04] MEDS: MAGNESIUM HYDROXIDE 30 ML UDCUP PO SCH (10:18)
[2017-05-04 11:59] VITALS: O2SAT 88
--- NOTE | 2017-05-04 12:19 | PDDCSUM ---
Discharge Summary Discharge Summary: Dates of service 04/29-05/04/17 Consultations: GI Procedures: EGD Hospital course by problem: # acute upper GI bleed due to gastric ulcer -sp EGD, not actively bleeding - will continue BID PPI x 12 weeks, f/u with Dr. Castillo prior to ending course of tx # acute blood loss anemia -2/2 above -s/p transfusion of 2 units with h/h still low but stable - will need to f/u with PCP and GI in the coming 1-2 weeks # metabolic acidosis -resolved # pyuria -negative cultures and asymptomatic, no further abx # viral upper respiratory tract infection with rhino virus -no evidence of pneumonia and asymptomatic -O2 need stable -droplet precautions # newly identified 5 mm lung nodule on CT scan -will need surveillance CT scanning in future # R knee, no ACL -s/p surgery, still 'gives out/painful -PT # tremor: - has had this in the past but patient notes that it is slightly worse, some of it seems intentional when she displays it, unclear etiology, recommend she follow up with her pcp dc home f/u with PCP and Dr. Castillo as schedule in coming 1-2 weeks > 35 minutes spent in dc, more than half in coordination of care and counseling patient and her family regarding f/u care plans
[2017-05-04 12:36] VITALS: TEMP 98.5
--- NOTE | 2017-05-04 14:31 | PDIAF ---
- Diagnosis Code Status: Full Code - Medication Management Discharge Medications: Medications to Continue on Transfer Budesonide [Budesonide EC] 3 mg PO BID 04/29/17 [Last Taken 04/28/17 21:00] Calcium Carbonate [Oyster Shell Calcium 500 mg (*)] 1,000 mg PO DAILY 04/29/17 [ Last Taken Unknown] Cholecalciferol Vit D3 [Vitamin D3 2000 units tab (OTC)] 2,000 units PO DAILY [Last Taken Unknown] DULoxetine [Cymbalta 30 MG (*)] 30 mg PO BID 04/29/17 [Last Taken 04/28/17 21:00 ] Docusate Sodium [Colace 100 MG (*)] 100 mg PO HS 04/29/17 [Last Taken 04/28/17] Ferrous Sulfate [Ferrous Sulf 325 MG (*)] 325 mg PO MWF 04/29/17 [Last Taken ] Glucosamine Sulfate [Glucosamine Sulfate 500 MG (*)] 1,000 mg PO DAILY 04/29/17 [Last Taken Unknown] Herbals/Supplements -Info Only 1 ea PO DAILY 04/29/17 [Last Taken Unknown] Losartan Potassium [Cozaar 25 mg (*)] 25 mg PO BID 04/29/17 [Last Taken 21:00] Metoprolol Succinate Xr [Toprol Xl 50 mg (*)] 50 mg PO BID 04/29/17 [Last Taken 04/28/17 21:00] Rosuvastatin Calcium [Crestor] 10 mg PO HS 04/29/17 [Last Taken 04/28/17] Vitamin B Complex [B Complex] 1 each PO DAILY 04/29/17 [Last Taken Unknown] Acetaminophen [Tylenol 325mg (*)] 650 mg PO Q4HRS PRN tab 05/04/17 [Last Taken Unknown] Calcium Carbonate [Tums 500MG (*)] 500 mg PO TID PRN tab.chew 05/04/17 [Last Taken Unknown] Pantoprazole Sodium [Protonix 40mg (*)] 40 mg PO BID #60 tab 05/04/17 [Last Taken Unknown] Polyethylene Glycol 3350 [Miralax 17 gm (*)] 17 gm PO DAILY PRN pkt 05/04/17 [ Last Taken Unknown] oxyCODONE IR [Oxycodone Ir (*)] 5 - 10 mg PO Q6H PRN #24 tab 05/04/17 [Last Taken Unknown] Discharge Medications: Refer to the Discharge Home Medication list for PRN reason. - Orders Services needed: Home Care, Physical Therapy, Occupational Therapy Home Care Face to Face: I certify that this patient was under my care and that I had the required [id number] encounter meeting the encounter requirements on the discharge day. My findings support the fact that the patient is homebound as defined in Home Care Face to Face Continued: CMS Chapter 7 Medicare Benefits Manual 30.1.1 , The condition of the patient is such that there exists a normal inability to leave home and consequently, leaving home would require a considerable and taxing effort. Isolation Type: Droplet Isolation Diet Recommendation: no restrictions on diet - Follow Up Care Current Providers and Referrals: Jacqui Ritter MD [Primary Care Provider] - As per Instructions Ramiro Castillo MD [[facility] Primary Care Provider] -
--- NOTE | 2017-05-05 09:32 | ASDISCHSUM ---
Discharge Information Plan Status:Home with Home Health Medically Cleared to Leave:05/03/2017 Discharge Date:05/04/2017 02:00 PM D/C Disposition:[facility] Health Service [facility]C Disposition:Home, Routine, Self-Care Projected Discharge Date:05/04/2017 11:00 AM Transportation at D/C:Family Discharge Delay Reason: Follow-Up Date:05/04/2017 11:00 AM Discharge Slot: Final Diagnosis: Placement Information Referral Type:*Home Health Care Services Referral ID:[id number] Provider Name:[facility] [address] 2: City:[place] Selection Factors: State:[place] Patient Contact Information Contact Name:JAMES Relationship: Address:[address] City:[place] Alternate Phone: State/Zip Code:[place] [address] Email: Financial Information Financial Class: Primary Plan Desc:MEDICARE INPATIENT Primary Plan Number:[id number] Secondary Plan Desc:[employer]/MDR SUPPLEMENT Secondary Plan Number:[id number] Assessment Information [facility] CM Progress Note CM Note CM Note Notes: Pt admtited with UTI, respiratory issues. Hx CAD, depression, falls at home. Currently on IV rocephin. Refused PT today. CM will follow for any d/c needs. Date Signed: 04/30/2017 04:49 PM Electronically Signed By:HARISH Reyes [facility] CM Progress Note CM Note CM Note Notes: pt found to have gastric ulcer. She is still on IV ABX. CM will follow for DC needs. Date Signed: 05/02/2017 04:10 PM Electronically Signed By:Radha Ryan LCSW [facility] Progress Note CM Note CM Note Notes: Pt will benefit from PT/OT at [place]. Met with pt who chose [facility]. Verified pt's address and discussed home bound. Pt asked that [facility] call her cell at [phone]. Pt will likely DC tomorrow. [facility] alerted. Date Signed: 05/03/2017 02:48 PM Electronically Signed By:Radha Ryan LCSW Case Management Discharge Plan Note Case Management Discharge Discharge Order Complete? Answers: Yes Patient to Obtain Answers: via [facility] Faxed Final Orders Answers: Yes Discharge Comments Notes: Pt discharging home today with PT/OT from [facility]. Left message for RN talent acquisition director. Date Signed: 05/04/2017 03:49 PM Electronically Signed By:HARISH Reyes Intervention Information Intervention Type:*Incorrect Registration Date of Service:04/30/2017 08:51 AM Patient Type:Inpatient Staff Member:AMANDA Dee Susan Hours: Discipline: Severity: Comment: Intervention Type:*ARREGUIN-Signed Date of Service:04/30/2017 02:32 PM Patient Type:Observation Staff Member:Bisi Reed Hours: Discipline: Severity: Comment:
--- NOTE | 2017-05-09 08:58 | PQFORM ---
PHYSICIAN QUERY FORM Needs Your Response This query form is being sent to you to assure this patient record is coded properly. Please respond to the question below: BOLT HEADER QUESTION: Dr Paola Castillo's EGD report documents a Duodenal Ulcer while the Progress Notes and the DS document a Gastric Ulcer. Please clarify the type of ulcer this patient has: x ___ Acute Duodenal Ulcer with bleed ___ Acute Gastric Ulcer with bleed ___ Chronic Duodenal Ulcer with bleed ___ Chronic Gastric Ulcer with bleed ___ Other (Please specify ) ___ Unable to Determine Thank You Linda VALLES Building Construction Teacher INSTRUCTIONS FOR RESPONSE: Answer question by clicking on the "Edit Document" button. Move cursor to area below the stars. When complete, hit "Save." Click on the "Sign" button, then click "Sign" again. Type in your PIN and hit "Enter." MTDD
== END 2017-05-04 14:00 | disposition home health service (06) | DRG 378 ==
LOC: INTOOBSV 14:31 → F1N 16:40 → OBSVTOIN 04-30 22:10
PROVIDERS: ADMIT Student in an Organized Health Care Education/Training Program; ATTEND Student in an Organized Health Care Education/Training Program
PROC: 30233N1 Transfusion of Nonautologous Red Blood Cells into Peripheral Vein, Percutaneous Approach (ICD-10-PCS; 2017-04-30)
PROC: 0DB98ZX Excision of Duodenum, Via Natural or Artificial Opening Endoscopic, Diagnostic (ICD-10-PCS; principal; 2017-05-01 15:00)
DX: K26.0 Acute duodenal ulcer with hemorrhage (principal); D62 Acute posthemorrhagic anemia; J00 Acute nasopharyngitis [common cold]; R91.1 Solitary pulmonary nodule; N39.0 Urinary tract infection, site not specified; R25.1 Tremor, unspecified; E83.42 Hypomagnesemia; N18.9 Chronic kidney disease, unspecified; I25.10 Atherosclerotic heart disease of native coronary artery without angina pectoris; Z95.5 Presence of coronary angioplasty implant and graft; Z87.891 Personal history of nicotine dependence
CPT/HCPCS: 96365; 97161-GP; A9585; G0378; G8978-GP-CI; G8979-GP-CI; J0171; J0696; J1170; J2250; J2920; J3010; P9016; Q9967

== ENCOUNTER → 2017-07-14 | Outpatient (CLI) | payer OTHER, MEDICARE | LOC: FIMAGING 11:54 | PROVIDERS: ATTEND Orthopaedic Surgery | DX: M25.562 Pain in left knee (principal); M23.222 Derangement of posterior horn of medial meniscus due to old tear or injury, left knee; M25.462 Effusion, left knee; M23.42 Loose body in knee, left knee ==

== ENCOUNTER → 2017-09-18 | Outpatient (CLI) | payer OTHER, MEDICARE | LOC: BMCIMAGING 12:17 | PROVIDERS: ATTEND Internal Medicine | DX: Z12.31 Encounter for screening mammogram for malignant neoplasm of breast (principal) ==

== ENCOUNTER 2017-11-03 00:55 | Emergency (ER) | payer OTHER, MEDICARE ==
[2017-11-03] MEDS ORDERED: NS 1,000 ML IV ONE (01:27)
--- NOTE | 2017-11-03 01:37 | EDPHY ---
H & P Stated Complaint: R side abd pain x3 days Time Seen by Provider: 11/03/17 01:37 HPI/ROS: HPI CHIEF COMPLAINT: Abdominal pain x3 days HISTORY OF PRESENT ILLNESS: This patient is a 72-year-old female, she has a history of upper GI bleed and anemia, she presents emergency room with right lower quadrant abdominal pain. Associated nausea. Pain has been present for 3 days. Located in her right lower quadrant. She denies any fever or vomiting. She does have some mild flank pain with this. Mainly in her low back. As well as complaints some right hip pain. Denies chest pain shortness of breath. She denies having any dysuria urinary frequency. Past Medical History: Coronary artery disease with stents, upper GI bleed, anemia, pyuria Past Surgical History: Denies recent surgical history, however has had hysterectomy, cholecystectomy Social History: Denies daily use of drugs alcohol tobacco. Family History: Noncontributory ROS REVIEW OF SYSTEMS: A comprehensive 10 point review of systems is otherwise negative aside from elements mentioned in the history of present illness. Exam Constitutional nontoxic appearing, obese, triage nursing summary reviewed, vital signs reviewed, awake/alert. Eyes normal conjunctivae and sclera, EOMI, PERRLA. HENT normal inspection, atraumatic, moist mucus membranes, no epistaxis, neck supple/ no meningismus, no raccoon eyes. Respiratory clear to auscultation bilaterally, normal breath sounds, no respiratory distress, no wheezing. Cardiovascular rate normal, regular rhythm, no murmur, no edema, distal pulses normal. Gastrointestinal tender palpation right lower quadrant, no rebound, no guarding, normal bowel sounds, no distension, no pulsatile mass. Genitourinary no CVA tenderness. Musculoskeletal no midline vertebral tenderness, full range of motion, no calf swelling, no tenderness of extremities, no meningismus, good pulses, neurovascularly intact. Skin pink, warm, & dry, no rash, skin atraumatic. Neurologic awake, alert and oriented x 3, AAOx3, moves all 4 extremities equally, motor intact, sensory intact, CN II-XII intact, normal cerebellar, normal vision, normal speech. Psychiatric normal mood/affect. Heme/Lymph/Immune no lymphadenopathy. Differential diagnosis includes but is not limited to and in no particular order : Bowel obstruction, appendicitis, gallbladder disease, diverticulitis, colitis , enteritis, perforated viscus, gastritis, GERD, esophagitis, urinary tract infection, pyelonephritis, kidney stones Medical Decision Making: Plan for this patient IV establishment IV fluid bolus 1 L normal saline, IV Zofran 4 mg for nausea, IV Dilaudid 0.5 mg for pain control, CT scan abdomen pelvis with IV contrast, rule out acute appendicitis. Check UA. Check lactic acid. Re-evaluate. Re-evaluation: CT scan abdomen pelvis with IV contrast: Shows no acute inflammatory process. Nothing to explain the right lower quadrant pain. The patient's appendix is normal visualized. Not fully. This was called to me by Dr. Hoskins. 0434: Patient re-evaluated she is resting comfortably feels much better. Blood work is reassuring. Urinalysis shows UTI. Urine cultures been sent. Here in the emergency room the patient received 1 g of IV Rocephin. Urine culture sent. She will be started on Keflex and peridium. Discussed return precautions with her she understands return emergency room if develops worsening abdominal pain fever vomiting flank pain. Her pending access visualized on her CT scan is normal. Re-examination this time she is resting comfortably no acute distress. Feeling better. Return precautions discussed. Return emergency room if worsening abdominal pain fever vomiting. Source: Patient - Personal History Current Tetanus/Diphtheria Vaccine: Yes Current Tetanus Diphtheria and Acellular Pertussis (TDAP): Yes - Medical/Surgical History Hx Asthma: No Hx Chronic Respiratory Disease: Yes Hx Diabetes: No Hx Cardiac Disease: Yes Hx Renal Disease: No Hx Cirrhosis: No Hx Alcoholism: No Hx HIV/AIDS: No Hx Splenectomy or Spleen Trauma: No Other PMH: angina. divertculosis. colitis. chronic back pain. sepsis - Social History Smoking Status: Former smoker Constitutional: Initial Vital Signs Temperature (C) 36.8 C 11/03/17 00:59 Heart Rate 78 11/03/17 00:59 Respiratory Rate 16 11/03/17 00:59 Blood Pressure 167/74 H 11/03/17 00:59 O2 Sat (%) 91 L 11/03/17 00:59 O2 Delivery Mode Nasal Cannula O2 (L/minute) 2 Allergies/Adverse Reactions: Sulfa (Sulfonamide Antibiotics) Allergy (Mild, Verified 04/29/17 09:13) Rash Home Medications: Medication Instructions Recorded Budesonide [Budesonide EC] 3 mg PO BID 04/29/17 Calcium Carbonate [Oyster Shell 1,000 mg PO DAILY 04/29/17 Calcium 500 mg (*)] Cholecalciferol Vit D3 [Vitamin D3 2,000 units PO DAILY 04/29/17 2000 units tab (OTC)] DULoxetine [Cymbalta 30 MG (*)] 30 mg PO BID 04/29/17 Ferrous Sulfate [Ferrous Sulf 325 325 mg PO MWF 04/29/17 MG (*)] Glucosamine Sulfate [Glucosamine 1,000 mg PO DAILY 04/29/17 Sulfate 500 MG (*)] Herbals/Supplements -Info Only 1 ea PO DAILY 04/29/17 Losartan Potassium [Cozaar 25 mg 25 mg PO BID 04/29/17 (*)] Metoprolol Succinate Xr [Toprol Xl 50 mg PO BID 04/29/17 50 mg (*)] Rosuvastatin Calcium [Crestor] 10 mg PO HS 04/29/17 Vitamin B Complex [B Complex] 1 each PO DAILY 04/29/17 Calcium Carbonate [Tums 500MG (*)] 500 mg PO TID PRN tab.chew 05/04/17 Pantoprazole Sodium [Protonix 40mg 40 mg PO BID #60 tab 05/04/17 (*)] Cephalexin [Keflex] 500 mg PO Q6H #28 cap 11/03/17 Phenazopyridine HCl [Pyridium] 200 mg PO TID #15 tab 11/03/17 Medical Decision Making - Data Points Laboratory Results: Laboratory Results 11/03/17 01:40 11/03/17 01:40 11/03/17 11/03/17 11/03/17 01:40 01:40 01:40 WBC 8.88 10^3/uL 10^3/uL (3.80-9.50) RBC 4.15 10^6/uL L 10^6/uL (4.18-5.33) Hgb 12.9 g/dL g/dL (12.6-16.3) Hct 39.4 % % (38.0-47.0) MCV 94.9 fL fL (81.5-99.8) MCH 31.1 pg pg (27.9-34.1) MCHC 32.7 g/dL g/dL (32.4-36.7) RDW 15.0 % % (11.5-15.2) Plt Count 267 10^3/uL 10^3/uL (150-400) MPV 9.5 fL fL (8.7-11.7) Neut % (Auto) 74.8 % H % (39.3-74.2) Lymph % (Auto) 11.8 % L % (15.0-45.0) [place] % (Auto) 10.8 % % (4.5-13.0) Eos % (Auto) 2.1 % % (0.6-7.6) Baso % (Auto) 0.3 % % (0.3-1.7) Nucleat RBC Rel Count 0.0 % % (0.0-0.2) Absolute Neuts (auto) 6.63 10^3/uL H 10^3/uL (1.70-6.50) Absolute Lymphs (auto) 1.05 10^3/uL 10^3/uL (1.00-3.00) Absolute Monos (auto) 0.96 10^3/uL H 10^3/uL (0.30-0.80) Absolute Eos (auto) 0.19 10^3/uL 10^3/uL (0.03-0.40) Absolute Basos (auto) 0.03 10^3/uL 10^3/uL (0.02-0.10) Absolute Nucleated RBC 0.00 10^3/uL 10^3/uL (0-0.01) Immature Gran % 0.2 % % (0.0-1.1) Immature Gran # 0.02 10^3/uL 10^3/uL (0.00-0.10) PT 12.8 SEC SEC (12.0-15.0) INR 0.94 (0.83-1.16) APTT 27.3 SEC SEC (23.0-38.0) VBG Lactic Acid Sodium 140 mEq/L mEq/L (135-145) Potassium 4.2 mEq/L mEq/L (3.3-5.0) Chloride 104 mEq/L mEq/L (97-110) Carbon Dioxide 24 mEq/l mEq/l (22-31) Anion Gap 12 mEq/L mEq/L (8-16) BUN 22 mg/dL mg/dL (7-23) Creatinine 1.1 mg/dL H mg/dL (0.6-1.0) Estimated GFR 49 Glucose 110 mg/dL H mg/dL (70-100) Calcium 9.9 mg/dL mg/dL (8.5-10.4) Total Bilirubin 0.5 mg/dL mg/dL (0.1-1.4) Conjugated Bilirubin 0.3 mg/dL mg/dL (0.0-0.5) Unconjugated Bilirubin 0.2 mg/dL mg/dL (0.0-1.1) AST 26 IU/L IU/L (14-46) ALT 39 IU/L IU/L (9-52) Alkaline Phosphatase 73 IU/L IU/L (38-126) Total Protein 6.7 g/dL g/dL (6.3-8.2) Albumin 3.7 g/dL g/dL (3.5-5.0) Lipase 691 IU/L H IU/L (23-300) Urine Color Urine Appearance Urine pH Ur Specific [place] Urine Protein Urine Ketones Urine Blood Urine Nitrate Urine Bilirubin Urine Urobilinogen Ur Leukocyte Esterase Urine RBC Urine WBC Ur Epithelial Cells Urine Bacteria Urine Mucus Urine Glucose 11/03/17 11/03/17 01:40 01:27 WBC RBC Hgb Hct MCV MCH MCHC RDW Plt Count MPV Neut % (Auto) Lymph % (Auto) [place] % (Auto) Eos % (Auto) Baso % (Auto) Nucleat RBC Rel Count Absolute Neuts (auto) Absolute Lymphs (auto) Absolute Monos (auto) Absolute Eos (auto) Absolute Basos (auto) Absolute Nucleated RBC Immature Gran % Immature Gran # PT INR APTT VBG Lactic Acid 1.2 mmol/L mmol/L (0.7-2.1) Sodium Potassium Chloride Carbon Dioxide Anion Gap BUN Creatinine Estimated GFR Glucose Calcium Total Bilirubin Conjugated Bilirubin Unconjugated Bilirubin AST ALT Alkaline Phosphatase Total Protein Albumin Lipase Urine Color YELLOW Urine Appearance HAZY Urine pH 5.0 (5.0-7.5) Ur Specific [place] 1.020 (1.002-1.030) Urine Protein NEGATIVE (NEGATIVE) Urine Ketones NEGATIVE (NEGATIVE) Urine Blood NEGATIVE (NEGATIVE) Urine Nitrate NEGATIVE (NEGATIVE) Urine Bilirubin NEGATIVE (NEGATIVE) Urine Urobilinogen NEGATIVE EU EU (0.2-1.0) Ur Leukocyte Esterase TRACE H (NEGATIVE) Urine RBC 3-5 /hpf H /hpf (0-3) Urine WBC 5-10 /hpf H /hpf (0-3) Ur Epithelial Cells TRACE /lpf /lpf (NONE-1+) Urine Bacteria TRACE /hpf H /hpf (NONE SEEN) Urine Mucus TRACE /lpf /lpf (NONE-1+) Urine Glucose NEGATIVE (NEGATIVE) Medications Given: Discontinued Medications Hydromorphone HCl (Dilaudid) 0.5 mg IVP EDNOW ONE Stop: 11/03/17 01:43 Last Admin: 11/03/17 01:47 Dose: 0.5 mg Sodium Chloride (Ns) 1,000 mls @ 0 mls/hr IV EDNOW ONE; Wide Open PRN Reason: Protocol Stop: 11/03/17 01:28 Last Admin: 11/03/17 01:31 Dose: 1,000 mls Ceftriaxone Sodium/Dextrose (Rocephin 1 Gm (Premix)) 50 mls @ 100 mls/hr IV EDNOW ONE PRN Reason: Protocol Stop: 11/03/17 03:12 Last Admin: 11/03/17 02:55 Dose: 50 mls Ondansetron HCl (Zofran) 4 mg IVP EDNOW ONE Stop: 11/03/17 01:43 Last Admin: 11/03/17 01:47 Dose: 4 mg Departure - Departure Disposition: Home, Routine, Self-Care Clinical Impression: UTI (urinary tract infection) Qualifiers: Urinary tract infection type: acute cystitis Hematuria presence: without hematuria Qualified Code(s): N30.00 - Acute cystitis without hematuria Condition: Good Instructions: Urinary Tract Infection in Women (ED) Additional Instructions: 1. Drink lots of fluids stay well-hydrated 2. Antibiotics as prescribed. 3. Return emergency room if develops worsening abdominal pain, flank pain, fever , vomiting Referrals: Jacqui Ritter MD [Primary Care Provider] - As per Instructions Prescriptions: Cephalexin [Keflex] 500 mg PO Q6H #28 cap Phenazopyridine HCl [Pyridium] 200 mg PO TID #15 tab
[2017-11-03] MEDS ORDERED: ONDANSETRON 4 MG/2 ML VIAL IVP ONE (01:42)
[2017-11-03] MEDS ORDERED: HYDROmorphONE/DILAUDID 2 MG/ML INJ IVP ONE (01:42)
[2017-11-03 01:49] LABS: PLATELET COUNT 267 10^3/uL (150-400)
[2017-11-03 01:57] LABS: INR 0.94 (0.83-1.16); PROTIME(PATIENT) 12.8 SEC (12.0-15.0)
[2017-11-03] MEDS ORDERED: IOPAMIDOL (ISOVUE-300) 100 ML BTL ONE (02:08)
[2017-11-03 04:44] VITALS: BP 138/78
== END 2017-11-03 04:44 | disposition home or self-care (01) ==
DX: N30.00 Acute cystitis without hematuria (principal); B96.89 Other specified bacterial agents as the cause of diseases classified elsewhere; I25.10 Atherosclerotic heart disease of native coronary artery without angina pectoris; E86.9 Volume depletion, unspecified; Z87.891 Personal history of nicotine dependence; Z90.49 Acquired absence of other specified parts of digestive tract; Z90.710 Acquired absence of both cervix and uterus
CPT/HCPCS: 74177; 96365; 96375; 99285; J0696; J1170; J2405; Q9967

== ENCOUNTER 2018-03-08 11:05 | Emergency (ER) | payer OTHER, MEDICARE ==
--- NOTE | 2018-03-08 11:36 | EDPHY ---
HPI/HX/ROS/PE/MDM Narrative: CHIEF COMPLAINT: Back pain HPI: This patient is a 73 year old female with history of CAD, diverticulosis, colitis. She complains of upper middle back pain beginning last Saturday, . In April 2017, she was admitted for back pain and at that time was found to have a bleeding ulcer as well as sepsis. Her back pain today is similar to that which preceded her admission. It is primarily in the middle, between her shoulder blades. She denies any blood in her stool, no melena. No vomiting. Additionally, the patient notes that she has had intermittent muscle spasms under her left breast for the past year. This has gotten more frequent and more severe recently as well. She was evaluated at urgent care earlier today, and referred to the ED for further evaluation including rule out for DVT or PE. The patient notes she has been more hypertensive than usual lately. She denies fever , chest pain, shortness of breath, abdominal pain, or other associated symptoms. REVIEW OF SYSTEMS: A comprehensive 10 system review of systems is otherwise negative aside from elements mentioned in the history of present illness and medical decision making. PMH: CAD s/p stent placement. Diverticulosis. Colitis. Chronic back pain. History of sepsis. Chronic kidney disease. SOCIAL HISTORY: . Friend at bedside. Lives in [place]. PHYSICAL EXAM: General:Patient is alert, in no acute distress. ENT:Eyes are normal to inspection. ENT inspection normal. Neck: Normal inspection. Full range of motion. Respiratory:No respiratory distress. Breath sounds normal bilaterally. Cardiovascular: Regular rate and rhythm. Strong peripheral pulses. Normal cap refill. Abdomen:The abdomen is nontender to palpation. There are no peritoneal signs. There are normal bowel sounds. Back: Midline tenderness over T5 and surrounding paraspinous muscles. Normal to inspection. Skin: Normal color. No rash. Warm and dry. Extremities: Normal appearance. Full range of motion. Neuro: Oriented x3. Normal motor function. Normal sensory function. ED Course: 73 y/o female presents with five day history of upper middle back pain, similar in presentation to that during her admission in April. She has midline tenderness over T5 and surrounding paraspinous muscles on exam. Plan for chest x -ray, labs including CBC, chemistries, troponin, d-dimer. D-dimer elevated at 0.56. Plan for CTPE to r/o PE or other acute processes. Labs otherwise largely unremarkable. Troponin negative at 0.01. 14:30: CTPE read as negative for PE or other acute findings by Dr. Reina. On re-evaluation, patient is hungry and asymptomatic. I see no signs of ACS, PE , PTX, T-spine fx or other life-threatening illness. Patient has no abdominal tenderness to suggest pancreatitis, nor nausea or GI symptoms. Plan to discharge home in good condition with referral to gastroenterology. Follow up and return precautions discussed. She is comfortable with this plan. - Data Points Imaging Results: Imaging Impressions Chest X-Ray 03/08/18 11:42 Impression: Central bronchitis. No focal infiltrate or pleural effusion. Thoracic dextroscoliosis.. Chest/Thorax CTA 03/08/18 12:38 Impression: 1. Negative CT examination of the chest for acute pulmonary thromboembolic disease. 2. Underlying emphysema. Indeterminate 6 mm noncalcified right upper lobe pulmonary nodule. Results called to Melany Ward PA-C for Dr. Osmin Beckman at 2:30 PM at the time of the interpretation. Imaging: Discussed imaging studies w/ call taker Radiologist, I viewed and interpreted images myself Laboratory Results: Laboratory Results 03/08/18 11:48 03/08/18 03/08/18 03/08/18 11:57 11:48 11:48 WBC RBC Hgb Hct MCV MCH MCHC RDW Plt Count MPV Neut % (Auto) Lymph % (Auto) [place] % (Auto) Eos % (Auto) Baso % (Auto) Nucleat RBC Rel Count Absolute Neuts (auto) Absolute Lymphs (auto) Absolute Monos (auto) Absolute Eos (auto) Absolute Basos (auto) Absolute Nucleated RBC Immature Gran % Immature Gran # D-Dimer 0.56 ug/mLFEU H ug/mLFEU (0.00-0.50) Sodium 140 mEq/L mEq/L (135-145) Potassium 4.2 mEq/L mEq/L (3.3-5.0) Chloride 104 mEq/L mEq/L (97-110) Carbon Dioxide 28 mEq/l mEq/l (22-31) Anion Gap 8 mEq/L mEq/L (6-14) BUN 23 mg/dL mg/dL (7-23) Creatinine 1.1 mg/dL H mg/dL (0.6-1.0) Estimated GFR 49 Glucose 107 mg/dL H mg/dL (70-100) Calcium 9.8 mg/dL mg/dL (8.5-10.4) POC Troponin I 0.01 ng/mL ng/mL (0.00-0.08) 03/08/18 11:48 WBC 9.02 10^3/uL 10^3/uL (3.80-9.50) RBC 4.20 10^6/uL 10^6/uL (4.18-5.33) Hgb 13.3 g/dL g/dL (12.6-16.3) Hct 40.7 % % (38.0-47.0) MCV 96.9 fL fL (81.5-99.8) MCH 31.7 pg pg (27.9-34.1) MCHC 32.7 g/dL g/dL (32.4-36.7) RDW 13.2 % % (11.5-15.2) Plt Count 245 10^3/uL 10^3/uL (150-400) MPV 9.9 fL fL (8.7-11.7) Neut % (Auto) 74.7 % H % (39.3-74.2) Lymph % (Auto) 11.9 % L % (15.0-45.0) [place] % (Auto) 11.0 % % (4.5-13.0) Eos % (Auto) 1.7 % % (0.6-7.6) Baso % (Auto) 0.4 % % (0.3-1.7) Nucleat RBC Rel Count 0.0 % % (0.0-0.2) Absolute Neuts (auto) 6.74 10^3/uL H 10^3/uL (1.70-6.50) Absolute Lymphs (auto) 1.07 10^3/uL 10^3/uL (1.00-3.00) Absolute Monos (auto) 0.99 10^3/uL H 10^3/uL (0.30-0.80) Absolute Eos (auto) 0.15 10^3/uL 10^3/uL (0.03-0.40) Absolute Basos (auto) 0.04 10^3/uL 10^3/uL (0.02-0.10) Absolute Nucleated RBC 0.00 10^3/uL 10^3/uL (0-0.01) Immature Gran % 0.3 % % (0.0-1.1) Immature Gran # 0.03 10^3/uL 10^3/uL (0.00-0.10) D-Dimer Sodium Potassium Chloride Carbon Dioxide Anion Gap BUN Creatinine Estimated GFR Glucose Calcium POC Troponin I Point of Care Test Results: Chemistry 03/08/18 11:57 POC Troponin I 0.01 ng/mL ng/mL (0.00-0.08) General Time Seen by Provider: 03/08/18 11:16 Initial Vital Signs: Initial Vital Signs Temperature (C) 36.5 C 03/08/18 11:10 Heart Rate 66 03/08/18 11:10 Respiratory Rate 18 03/08/18 11:10 Blood Pressure 174/87 H 03/08/18 11:10 O2 Sat (%) 95 03/08/18 11:10 O2 Delivery Mode Nasal Cannula O2 (L/minute) 2 Allergies/Adverse Reactions: adhesive tape Allergy (Verified 03/08/18 11:09) Rash nickel Allergy (Verified 03/08/18 11:09) horrible rash Sulfa (Sulfonamide Antibiotics) Allergy (Verified 03/08/18 11:09) Rash Home Medications: Medication Instructions Recorded Budesonide [Budesonide EC] 3 mg PO DAILY 04/29/17 Cholecalciferol Vit D3 [Vitamin D3 2,000 units PO DAILY 04/29/17 2000 units tab (OTC)] Ferrous Sulfate [Ferrous Sulf 325 325 mg PO BID 04/29/17 MG (*)] Glucosamine Sulfate [Glucosamine 1,000 mg PO DAILY 04/29/17 Sulfate 500 MG (*)] Herbals/Supplements -Info Only 1 ea PO DAILY 04/29/17 Metoprolol Succinate Xr [Toprol Xl 25 mg PO BID 04/29/17 50 mg (*)] Rosuvastatin Calcium [Crestor] 10 mg PO HS 04/29/17 Vitamin B Complex [B Complex] 1 each PO DAILY 04/29/17 Aspirin [Aspirin 81mg (*)] 81 mg PO HS 02/17/18 Ibuprofen [Motrin (*)] 200 mg PO HS PRN 02/17/18 Lact Cmb2/S.thermophl/Bif Cmb1 1 each PO DAILY 02/17/18 [Vsl#3 Cap (*)] Losartan Potassium [Cozaar 50 mg 50 mg PO DAILY 02/17/18 (*)] [place]-3 Fatty Acids [Fish Oil 1000 1,000 mg PO DAILY 02/17/18 mg (*)] Departure - Departure Disposition: Home, Routine, Self-Care Clinical Impression: Chest pain Qualifiers: Chest pain type: other chest pain Qualified Code(s): R07.89 - Other chest pain ; R07.8 - Other chest pain Instructions: Chest Pain (ED) Additional Instructions: Follow-up with your primary doctor and/or your fruit preserver within 72 hours. Return to the Emergency Department for fever, chest pain, shortness of breath, increasing pain or other worsening of condition. Referrals: Jacqui Ritter MD [Primary Care Provider] - As per Instructions Report Scribed for: Osmin Beckman Report Scribed by: Mariana Astorga Date of Report: 03/08/18 Time of Report: 13:22 Physician Review and Approval Statement: Portions of this note were transcribed by an ED scribe. I personally performed the history, physical exam, and medical decision making; and confirm the accuracy of the information in the transcribed note.
[2018-03-08 12:07] LABS: PLATELET COUNT 245 10^3/uL (150-400)
[2018-03-08] MEDS ORDERED: IOPAMIDOL (ISOVUE 370) 100 ML BTL IV ONE (13:10)
[2018-03-08 15:02] VITALS: BP 165/101
== END 2018-03-08 15:02 | disposition home or self-care (01) ==
DX: R07.9 Chest pain, unspecified (principal); J40 Bronchitis, not specified as acute or chronic; M41.84 Other forms of scoliosis, thoracic region
CPT/HCPCS: 71046; 71275; 99285; Q9967; 84484-PO

== ENCOUNTER 2018-03-19 08:45 | Inpatient (IN) | payer OTHER, MEDICARE ==
--- NOTE | 2018-03-19 06:43 | PDHPUP ---
History & Physical Update H&P update statement: This history and physical update is based on an assessment of the patient which was completed after admission or registration (within 24 hours), but prior to the surgery/procedure. H&P update: H&P reviewed & patient examined, no change in patient's condition since H&P completed
[~2018-03-19 08:45] MED LIST: ROPIVACAINE 0.2% 80 MG, EPINEPHrine 0.2 MG in SYRINGE 0 ML IU ONE; TRANEXAMIC ACID 3,000 MG in NS (SYRINGE) 50 ML IRR ONE
[2018-03-19] MEDS ORDERED: TRANEXAMIC ACID 3,000 MG/50 ML BAG IRR ONE (12:34)
[2018-03-19] MEDS ORDERED: VANCOMYCIN 1 GM VIAL ONE (12:34)
[2018-03-19] MEDS ORDERED: ACETAMINOPHEN 325 MG TAB PO ONE (13:28)
[2018-03-19] MEDS ORDERED: ceFAZolin 2 GM/DEXTROSE 100 ML IV ONE (13:28)
[2018-03-19] MEDS ORDERED: FAMOTIDINE 20 MG TAB PO ONE (13:28)
[2018-03-19] MEDS ORDERED: DEXAMETHASONE 4 MG/ML VIAL IVP ONE (13:28)
[2018-03-19] MEDS ORDERED: LR 1,000 ML IV ONE (13:31)
[2018-03-19] MEDS ORDERED: ACETAMINOPHEN 325 MG TAB ONE (13:59)
[2018-03-19] MEDS ORDERED: PROPOFOL/EMULSION 500 MG/50 ML BOTTLE IV ONE (14:49)
--- NOTE | 2018-03-19 14:49 | PDANEPAE ---
ANE Past Medical History - Cardiovascular History Hx Hypertension: Yes Hx Arrhythmias: No Hx Chest Pain: No Hx Coronary Artery / Peripheral Vascular Disease: Yes Hx CHF / Valvular Disease: No Hx Palpitations: No Cardiovascular History Comment: htn. hyperlipidemia. CAD- with stents. pulmonary htn. followed by [facility] cardiology - Pulmonary History Hx COPD: Yes Hx Asthma/Reactive Airway Disease: No Hx Recent Upper Respiratory Infection: No Hx Oxygen in Use at Home: Yes O2 in Use at Home (L/minute): 2l cont during day and 3l at noc Hx Sleep Apnea: Yes Sleep Apnea Screening Result - Last Documented: Positive Pulmonary History Comment: phil positive uses o2. followed by [facility]- records on chart - Neurologic History Hx Cerebrovascular Accident: No Hx Seizures: No Hx Dementia: No - Endocrine History Hx Diabetes: No - Renal History Hx Renal Disorders: No - Liver History Hx Hepatic Disorders: No - Neurological & Psychiatric Hx Hx Neurological and Psychiatric Disorders: Yes Neurological / Psychiatric History Comment: recently passed- situational depression - Cancer History Hx Cancer: No - Congenital Disorder History Hx Congenital Disorders: No - GI History Hx Gastrointestinal Disorders: Yes Gastrointestinal History Comment: reflux- uses tums - Other Health History Other Health History: none - Chronic Pain History Chronic Pain: Yes (bilateral knees) - Surgical History Prior Surgeries: 05/13/09 lap leeann with Lorin. hysterectomy. benign tumor removed from neck. cardiac stents. d&c's (multiple when she was younger) ANE Review of Systems Review of Systems: - Exercise capacity METS (RN): 3 METS ANE Patient History - Allergies Allergies/Adverse Reactions: adhesive tape Allergy (Verified 03/08/18 11:09) Rash nickel Allergy (Verified 03/08/18 11:09) horrible rash Sulfa (Sulfonamide Antibiotics) Allergy (Verified 03/08/18 11:09) Rash - Home Medications Home Medications: Budesonide [Budesonide EC] 3 mg PO DAILY 04/29/17 [Last Taken 03/19/18 08:00] Cholecalciferol Vit D3 [Vitamin D3 2000 units tab (OTC)] 2,000 units PO DAILY [Last Taken 03/10/18] Ferrous Sulfate [Ferrous Sulf 325 MG (*)] 325 mg PO BID 04/29/17 [Last Taken 10/28] Glucosamine Sulfate [Glucosamine Sulfate 500 MG (*)] 1,000 mg PO DAILY 04/29/17 [Last Taken 03/10/18] Herbals/Supplements -Info Only 1 ea PO DAILY 04/29/17 [Last Taken 03/03/18] Metoprolol Succinate Xr [Toprol Xl 50 mg (*)] 25 mg PO BID 04/29/17 [Last Taken 03/19/18 08:00] Rosuvastatin Calcium [Crestor] 10 mg PO HS 04/29/17 [Last Taken 03/18/18] Vitamin B Complex [B Complex] 1 each PO DAILY 04/29/17 [Last Taken 03/10/18] Aspirin [Aspirin 81mg (*)] 81 mg PO HS 02/17/18 [Last Taken 03/10/18] Ibuprofen [Motrin (*)] 200 mg PO HS PRN 02/17/18 [Last Taken 03/10/18] Lact Cmb2/S.thermophl/Bif Cmb1 [Vsl#3 Cap (*)] 1 each PO DAILY 02/17/18 [Last Taken 03/19/18 08:00] Losartan Potassium [Cozaar 50 mg (*)] 50 mg PO DAILY 02/17/18 [Last Taken ] [place]-3 Fatty Acids [Fish Oil 1000 mg (*)] 1,000 mg PO DAILY 02/17/18 [Last Taken 03/10/18] - NPO status NPO Since - Liquids (Date): 03/19/18 NPO Since - Liquids (Time): 11:45 NPO Since - Solids (Date): 03/18/18 NPO Since - Solids (Time): 18:00 - Smoking Hx Smoking Status: Former smoker - Family Anes Hx Family Hx Anesthesia Complications: none ANE Labs/Vital Signs - Vital Signs Blood Pressure: 149/78 Heart Rate: 79 Respiratory Rate: 16 O2 Sat (%): 97 Height: 162.56 cm Weight: 90.718 kg ANE Physical Exam - Airway Neck exam: decreased ROM Mallampati Score: Class 3 Mouth exam: normal dental/mouth exam - Pulmonary Pulmonary: no respiratory distress - Cardiovascular Cardiovascular: regular rate and rhythym - ASA Status ASA Status: III ANE Anesthesia Plan Anesthesia Plan: spinal Regional Anesthesia: single shot NB
[2018-03-19] MEDS ORDERED: fentaNYL 100 MCG/2 ML INJ ONE ×4 (15:18→17:00)
[2018-03-19] MEDS ORDERED: ROCURONIUM 50 MG/5 ML VIAL ONE (15:20)
[2018-03-19] MEDS ORDERED: LACTULOSE 20 GM/30 ML UDCUP PO PRN (15:30)
[2018-03-19] MEDS ORDERED: MAGNESIUM HYDROXIDE 30 ML UDCUP PO PRN (15:30)
[2018-03-19] MEDS ORDERED: NS 1,000 ML IV SCH (15:30)
[2018-03-19] MEDS ORDERED: POLYETHYLENE GLYCOL 3350 17 GM PKT PO PRN (15:30)
[2018-03-19] MEDS ORDERED: TEMAZEPAM 15 MG CAP PO PRN (15:30)
[2018-03-19] MEDS ORDERED: PROMETHAZINE HCL 25 MG/ML INJ IVP PRN (15:30)
[2018-03-19] MEDS ORDERED: ONDANSETRON DISINTEGRATING 4 MG TAB PO PRN (15:30)
[2018-03-19] MEDS ORDERED: diphenhydrAMINE 25 MG CAP PO PRN (15:30)
[2018-03-19] MEDS ORDERED: BISACODYL 10 MG SUPP PR PRN (15:30)
[2018-03-19] MEDS ORDERED: PROMETHAZINE HCL 25 MG SUPPR PR PRN (15:30)
[2018-03-19] MEDS ORDERED: METOCLOPRAMIDE 10 MG/2 ML VIAL IVP PRN (15:30)
[2018-03-19] MEDS ORDERED: ONDANSETRON 4 MG/2 ML VIAL IVP PRN ×2 (15:30→17:03)
[2018-03-19] MEDS ORDERED: DIPHENOXYLATE/ATROPINE LOMOTIL 1 TAB PO PRN (15:30)
[2018-03-19] MEDS ORDERED: SUGAMMADEX SODIUM 200 MG/2 ML VIAL IVP ONE (15:59)
--- NOTE | 2018-03-19 16:45 | POSTOPPROG ---
Post Op Note Date of Operation: 03/19/18 Surgeon: Stephen Dewey Chainstitch Seat Joiner: Marcelina Dewey PAc Anesthesiologist: Abhijeet Anesthesia: GET(General Endotracheal) Pre-op Diagnosis: R knee DJD Post-op Diagnosis: same Indication: pain Procedure: R TKA Findings: DJD knee Inf/Abcess present in the surg proc area at time of surgery?: No EBL: 50-100
[2018-03-19] MEDS: fentaNYL 100 MCG/2 ML INJ IVP PRN ×2 (17:00→17:21)
[2018-03-19] MEDS ORDERED: NALOXONE HCL 0.4 MG/ML INJ IVP PRN ×3 (17:00→17:03)
--- NOTE | 2018-03-19 17:00 | POSTANESTH ---
Post Anesthetic Evaluation Cardiovascular Status: Similar to Pre-Op Cond Respiratory Status: Similar to Pre-op Cond. Level of Consciousness/Mental Status: Mildly Sleepy, Arousable Pain Control: Adequate, Prn Tx Ordered Nausea/Vomiting Control: Adequate, Prn Tx Ordered Complications Possibly Related to Anesthesia: None Noted
[2018-03-19] MEDS ORDERED: ALBUTEROL 3 ML DEYVIAL IH PRN (17:03)
--- NOTE | 2018-03-19 17:05 | PDMN ---
Medical Necessity Medical necessity: Pt meets IP criteria per PA; est los >2 mn s/p R TKA (CPT 48408); comorbid COPD, HTN, CKD & mobility issues as pt used wheelchair preoperatively
[2018-03-19] MEDS ORDERED: ONDANSETRON 4 MG/2 ML VIAL ONE (17:29)
[2018-03-19] MEDS: ACETAMINOPHEN 325 MG TAB PO SCH ×2 (18:40→23:20)
[2018-03-19] MEDS: METOPROLOL SUCCINATE XR 50 MG TAB PO SCH (22:07)
[2018-03-19] MEDS: ASPIRIN 81 MG CHEWABLE TAB PO SCH (22:07)
[2018-03-19] MEDS: FERROUS SULFATE 325 MG TAB PO SCH (22:08)
[2018-03-19] MEDS: ROSUVASTATIN CALCIUM 10 MG TAB PO SCH (22:09)
[2018-03-19] MEDS: CYCLOBENZAPRINE 10 MG TAB PO PRN (22:15)
[2018-03-19] MEDS: SENNOSIDES/DOCUSATE SODIUM TAB PO SCH (22:27)
[2018-03-19] MEDS: FAMOTIDINE 20 MG TAB PO SCH (22:27)
[2018-03-19] MEDS: ceFAZolin 2 GM/DEXTROSE 100 ML IV SCH (23:25)
[2018-03-20] MEDS: oxyCODONE IR 5 MG TAB PO PRN ×3 (01:07→22:19)
[2018-03-20] MEDS: ACETAMINOPHEN 325 MG TAB PO SCH ×3 (05:08→17:08)
[2018-03-20] MEDS: METOPROLOL SUCCINATE XR 50 MG TAB PO SCH ×2 (08:03→20:50)
[2018-03-20] MEDS: BUDESONIDE 3 MG EC CAP PO SCH (08:03)
[2018-03-20] MEDS: ASPIRIN 81 MG CHEWABLE TAB PO SCH ×2 (08:05→20:50)
[2018-03-20] MEDS: LOSARTAN POTASSIUM 50 MG TAB PO SCH (08:05)
[2018-03-20] MEDS: ceFAZolin 2 GM/DEXTROSE 100 ML IV SCH (08:06)
[2018-03-20] MEDS: FERROUS SULFATE 325 MG TAB PO SCH ×2 (08:06→20:50)
[2018-03-20] MEDS: FAMOTIDINE 20 MG TAB PO SCH ×2 (08:06→20:51)
[2018-03-20] MEDS: SENNOSIDES/DOCUSATE SODIUM TAB PO SCH ×2 (08:07→20:51)
--- NOTE | 2018-03-20 08:29 | SOAPPROG ---
SOAP Progress Note Assessment/Plan: Assessment: Patient is doing well POD 1 s/p R TKA Pain management: pain is well controlled on oral pain meds. VTE ppx: recommend aspirin 81 mg BID for 4 weeks, cont MAYRA and SCDs Anemia: level is expected initially postop. Asymptomatic. Continue to monitor D/c planning: d/c to home most likely tomorrow with support of daughter and son. Due to multiple comorbidities, recommend another night in the hospital for further monitoring postop. Continue PT everyday while in the hospital. Plan: 03/20/18 08:28 Subjective: Safia is doing quite well, resting comfortably, denies SOB ,chest pain and N/V. Objective: Vital Signs Temp Pulse Resp BP Pulse Ox 36.9 C 67 14 140/97 H 91 L 03/20/18 07:20 03/20/18 07:20 03/20/18 07:20 03/20/18 07:20 03/20/18 07:20 Laboratory Results 03/20/18 04:33 03/20/18 04:33 03/19/18 03/20/18 03/21/18 05:59 05:59 05:59 Intake Total 0 Output Total 830 Balance 1240 RLE: incision dressing is clean and dry, NVI, +pf/df ICD10 Worksheet Patient Problems: Problems Problem Status Onset Primary localized osteoarthritis of right knee Acute Elevated serum lactate dehydrogenase Acute GI bleed Acute Hypotension Acute Urinary tract infection Acute
--- NOTE | 2018-03-20 09:24 | GOP ---
DATE OF OPERATION: 03/19/2018 SURGEON: Pranav Dewey MD CENTRIFUGAL SEPARATOR: VAISHALI Blum. ANESTHESIA: Spinal. PREOPERATIVE DIAGNOSIS: Right knee osteoarthritis. POSTOPERATIVE DIAGNOSIS: Right knee osteoarthritis. PROCEDURE PERFORMED: Right total knee arthroplasty. FINDINGS: ESTIMATED BLOOD LOSS: 30 cc. INDICATIONS: This is a 73-year-old female with severe and progressive pain and deformity of the righ t knee unresponsive to conservative care. Risks and benefits of the surgical intervention were expla ined in detail. DESCRIPTION OF PROCEDURE: The patient was brought to the operative room and placed on the table in t he supine position. Spinal anesthesia was induced without difficulty. A pneumatic tourniquet was ap plied about the right proximal thigh, and the leg was prepped and draped in a sterile fashion. The l eg valente was applied. After exsanguination by elevation the tourniquet was inflated to 250 mmHg. Incision was made anterior medial from the tibial tuberosity to a point 2 cm proximal to the superior pole of the patella. Medial parapatellar arthrotomy was carried out from the superior pole of the p atella and posteriorly in line with the fibers of the Type II VMO. The medial collateral ligament wa s elevated and the infrapatellar fat pad was resected. The patella was everted and the articular surface was excised. A 29 mm patellar button was placed. T distal femoral guide hole was drilled and the 6 degree alignment gail was placed. A 10 mm distal f emoral cut was made without difficulty. Attention was turned to the tibia and a standard 9 mm cut based on the lateral tibial condyle was per formed. The tibial articular surface was excised without difficulty. Attention was turned back to the femur and a size 3 Journey II femoral cutting block was positioned. Anterior, posterior, and chamfer cuts were made, followed by the intercondylar box cut. The knee was extended and the remnants of the medial and lateral meniscus were excised. The posterio r capsule was injected with ropivacaine, epinephrine and Toradol. A size 3 tibial tray was positione d. Trial reduction was then carried out. There was excellent range of motion, alignment, and stabil ity using the 9 mm polyethylene. All trials were then removed. The joint was thoroughly irrigated and carefully dried. Two packages of cement and 2 grams of vancomycin were mixed in the vacuum mixer and placed on the fixation surface s of all surfaces of the components. The components were implanted and all excess cement was thoroug hly removed. The permanent 9 mm polyethylene was placed without difficulty. The tourniquet was deflated and all bleeders were coagulated. The wound was thoroughly irrigated and closed using interrupted sutures of 2-0 Vicryl for the joint capsule. The subcu was closed with 3-0 Vicryl and the skin with 4-0 Monocryl. Dermabond and Steri-Strips were applied followed by a compre ssive dressing. The patient was then moved from the operating room to the recovery room in good cond ition, having tolerated the procedure well. PATHOLOGY: Severe medial patellofemoral osteoarthritis. /[id number]/MODL
[2018-03-20] MEDS: VSL#3 1 EACH CAP PO SCH (09:57)
[2018-03-20] MEDS: CYCLOBENZAPRINE 10 MG TAB PO PRN (15:50)
[2018-03-20] MEDS: ROSUVASTATIN CALCIUM 10 MG TAB PO SCH (20:50)
[2018-03-21] MEDS: ACETAMINOPHEN 325 MG TAB PO SCH ×3 (00:42→11:16)
[2018-03-21] MEDS: LOSARTAN POTASSIUM 50 MG TAB PO SCH (07:59)
[2018-03-21] MEDS: METOPROLOL SUCCINATE XR 50 MG TAB PO SCH (07:59)
[2018-03-21] MEDS: FERROUS SULFATE 325 MG TAB PO SCH (07:59)
[2018-03-21] MEDS: ASPIRIN 81 MG CHEWABLE TAB PO SCH (08:00)
[2018-03-21] MEDS: FAMOTIDINE 20 MG TAB PO SCH (08:00)
[2018-03-21] MEDS: oxyCODONE IR 5 MG TAB PO PRN (08:00)
[2018-03-21] MEDS: BUDESONIDE 3 MG EC CAP PO SCH (08:00)
[2018-03-21] MEDS: VSL#3 1 EACH CAP PO SCH (08:01)
[2018-03-21] MEDS: SENNOSIDES/DOCUSATE SODIUM TAB PO SCH (08:02)
[2018-03-21 11:53] VITALS: BP 131/68
--- NOTE | 2018-03-21 16:18 | SOAPPROG ---
SOAP Progress Note Assessment/Plan: Assessment: Patient is doing well POD 2 s/p R TKA Pain management: pain is well controlled on oral pain meds. VTE ppx: recommend aspirin 81 mg BID for 4 weeks, cont MAYRA and SCDs Anemia: level is expected initially postop. Asymptomatic. Continue to monitor D/c planning: d/c to home today. Plan: 03/20/18 08:28 03/21/18 16:17 Subjective: Patient is doing well, denies SOB, chest pain and N/v. Objective: Vital Signs Temp Pulse Resp BP Pulse Ox 36.6 C 97 15 131/68 H 97 03/21/18 11:52 03/21/18 11:52 03/21/18 11:52 03/21/18 11:52 03/21/18 11:52 Laboratory Results 03/21/18 04:35 03/20/18 04:33 03/20/18 03/21/18 03/22/18 05:59 05:59 05:59 Intake Total 2070 700 Output Total 830 775 Balance 1240 -75 RLE: incision dressing is clean and dry, NVI, +pf/df ICD10 Worksheet Patient Problems: Problems Problem Status Onset Elevated serum lactate dehydrogenase Acute GI bleed Acute Hypotension Acute Primary localized osteoarthritis of right knee Acute Urinary tract infection Acute
== END 2018-03-21 14:34 | disposition home or self-care (01) | DRG 470 ==
LOC: F3N 12:40 → OBSVTOIN 15:34 → F3N 18:20
PROVIDERS: ADMIT Orthopaedic Surgery; ATTEND Orthopaedic Surgery
PROC: 0SRC0J9 Replacement of Right Knee Joint with Synthetic Substitute, Cemented, Open Approach (ICD-10-PCS; principal; 2018-03-19 15:00)
DX: M17.11 Unilateral primary osteoarthritis, right knee (principal); I10 Essential (primary) hypertension; I25.10 Atherosclerotic heart disease of native coronary artery without angina pectoris; E78.5 Hyperlipidemia, unspecified; I27.20 Pulmonary hypertension, unspecified; J44.9 Chronic obstructive pulmonary disease, unspecified; G47.33 Obstructive sleep apnea (adult) (pediatric); Z99.81 Dependence on supplemental oxygen; Z95.5 Presence of coronary angioplasty implant and graft
CPT/HCPCS: 97110-GP; 97116-GP; 97161-GP; 97165-GO; C1713; G8978-GP-CJ; G8979-GP-CI; G8987-GO-CJ; G8988-GO-CI; J0171; J0690; J1100; J2270; J2405; J2704; J2795; J3010; J3370

== ENCOUNTER 2018-05-27 14:33 | Emergency (ER) | payer OTHER, MEDICARE ==
[2018-05-27] MEDS ORDERED: NS 500 ML IV ONE (15:28)
--- NOTE | 2018-05-27 15:36 | EDPHY ---
H & P Time Seen by Provider: 05/27/18 15:06 HPI/ROS: HPI Left-sided abdominal pain. 73-year-old female by private vehicle from the [facility]. This patient reports that on Saturday she developed crampy and sharp left lower quadrant abdominal pain. She reports that this resolved after few hours became back again on Saturday, then resolved and returned again on Saturday. She reports that this morning at approximately 7:00 a.m. The pain returned and has been persistent since that time. She was seen and evaluated at the [facility] prior to coming here. She received intramuscular Toradol. She states that she does not need pain medication at this time. She has a prior history of diverticulosis but not diverticulitis. She denies any urinary complaints. Her last meal was yesterday evening. She describes the pain is radiating up into her left flank area. ROS: Constitutional: No fever, no chills. No weakness. Eyes: No discharge. No changes in vision. ENT: No sore throat. No nasal congestion or rhinorrhea. Respiratory: No cough. No shortness of breath. Cardiac: No chest pain, no palpitations. Gastrointestinal: As above, no vomiting, no diarrhea. No bloody or black stool. Genitourinary: No hematuria. No dysuria or increased frequency with urination. Musculoskeletal: No back pain. No neck pain. No myalgias or arthralgias. Skin: No rashes. Neurological: No headache. No focal weakness or altered sensation. Past medical history: Coronary artery disease, diverticulosis, colitis, chronic back pain, sepsis, right knee surgery. Social history: Nonsmoker. Here by herself. No alcohol. . Physical Exam: General Appearance: Alert, pleasant, she is not in distress. This patient is responding to questions appropriately and in full sentences. This patient appears well-hydrated and well-nourished. Eyes: Pupils equal and round no pallor or injection. No lid edema, erythema or injection. Respiratory: There are no retractions, lungs are clear to auscultation with good air movement bilaterally. Cardiovascular: Regular rate and rhythm. No murmur. Gastrointestinal: Obese habitus. Abdomen is soft with vague left lower quadrant tenderness on palpation, no masses, bowel sounds normal. No focal tenderness at McBurney's point. No Carrillo sign. Neurological: Motor sensory function is grossly intact. Cranial nerves are normal. Gait is normal. Skin: Warm and dry, no rashes. Musculoskeletal: Neck is supple and nontender. Extremities are symmetrical. All joints range without pain or impingement. Psychiatric: No agitation. No depression. Database: EKG: Imaging: CT abdomen and pelvis with IV contrast: Significant for a 4 mm left-sided distal ureteral stone with mild hydronephrosis. Otherwise unremarkable. Results were discussed with staff radiologist Dr. Rogers. Procedures: Emergency department course: Triage vital signs reviewed. She is moderately hypertensive. Vital signs are otherwise normal. She is afebrile. IV was placed. She was started on IV normal saline with 500 cc to be given over the next hour. She declines pain medication at this time. After verification of a normal creatinine, CT scan of the abdomen and pelvis will be obtained to evaluate for diverticulitis. She endorses. 5:45 p.m., the patient was re-evaluated. Her pain is currently well controlled. I discussed the results of her CT scan and diagnosis of kidney stone with her and her. I also discussed the results of her chemistry panel and her elevated creatinine. Her urinalysis shows a high level of white cells. Culture is pending. She has been complaining of increased frequency with urination over the last several days. At this time I will put her on Keflex. She feels comfortable going home. She can easily return to the emergency department if needed. I discussed urology follow-up. I will prescribe Shannon for pain control. She was given 0.4 mg of Flomax and 500 mg of Keflex in the emergency department. Prescriptions for these medications will be given to her. Return to emergency department precautions were thoroughly reviewed with her. All of her questions were answered. The patient was discharged home in good condition with a friend. Differential Diagnosis: The differential diagnosis on this patient includes but is not limited to diverticulitis, ureterolithiasis, urinary tract infection. This represents a partial list of diagnoses considered. These considerations are based on history , physical exam, past history, reassessment and diagnostic testing. Smoking Status: Former smoker Constitutional: Initial Vital Signs Temperature (C) 36.6 C 05/27/18 14:42 Heart Rate 68 05/27/18 14:42 Respiratory Rate 18 05/27/18 14:42 Blood Pressure 154/76 H 05/27/18 14:42 O2 Sat (%) 93 05/27/18 14:42 O2 Delivery Mode Room Air O2 (L/minute) 3 Allergies/Adverse Reactions: adhesive tape Allergy (Verified 05/29/18 09:52) Rash nickel Allergy (Verified 05/29/18 09:52) horrible rash Sulfa (Sulfonamide Antibiotics) Allergy (Verified 05/29/18 09:52) Rash Home Medications: Medication Instructions Recorded Budesonide [Budesonide EC] 3 mg PO DAILY 04/29/17 Cholecalciferol Vit D3 [Vitamin D3 2,000 units PO HS 04/29/17 2000 units tab (OTC)] Ferrous Sulfate [Ferrous Sulf 325 325 mg PO BID 04/29/17 MG (*)] Glucosamine Sulfate [Glucosamine 1,000 mg PO HS 04/29/17 Sulfate 500 MG (*)] Herbals/Supplements -Info Only 1 ea PO DAILY 04/29/17 Metoprolol Succinate Xr [Toprol Xl 50 mg PO DAILY 04/29/17 50 mg (*)] Rosuvastatin Calcium [Crestor] 10 mg PO HS 04/29/17 Vitamin B Complex [B Complex] 1 each PO DAILY 04/29/17 Losartan Potassium [Cozaar 50 mg 50 mg PO DAILY 02/17/18 (*)] [place]-3 Fatty Acids [Fish Oil 1000 1,000 mg PO DAILY 02/17/18 mg (*)] Lact Cmb2/S.thermophl/Bif Cmb1 1 each PO DAILY 03/20/18 [Vsl#3 Cap (*)] Aspirin [Aspirin 81mg (*)] 81 mg PO HS 05/29/18 Docusate Sodium [Colace 100 MG (*)] 100 mg PO DAILY 05/29/18 Medical Decision Making - Data Points Laboratory Results: Laboratory Results 05/27/18 15:40 05/27/18 15:40 Microbiology Results: MICROBIOLOGY 05/27/18 17:05 Unspecified Urine Culture - Final Escherichia Coli Enterococcus Species Medications Given: Discontinued Medications Hydrocodone Bitart/Acetaminophen (Shannon 5/325mg [place]ack#6) 1 btl TAKEHOME EDNOW ONE Stop: 05/27/18 18:21 Last Admin: 05/27/18 18:21 Dose: 1 btl Cephalexin HCl (Keflex) 500 mg PO EDNOW ONE PRN Reason: Protocol Stop: 05/27/18 18:00 Last Admin: 05/27/18 18:16 Dose: 500 mg Sodium Chloride (Ns) 500 mls @ 0 mls/hr IV EDNOW ONE; Wide Open PRN Reason: Protocol Stop: 05/27/18 15:29 Last Admin: 05/27/18 16:00 Dose: 500 mls Tamsulosin HCl (Flomax) 0.4 mg PO EDNOW ONE Stop: 05/27/18 17:58 Last Admin: 05/27/18 18:15 Dose: 0.4 mg Departure - Departure Disposition: Home, Routine, Self-Care Clinical Impression: Lower abdominal pain, Renal calculus, left, Renal insufficiency Condition: Good Instructions: Kidney Stones (ED) Additional Instructions: Read and follow provided instructions. Follow-up with Urology in the next 1-2 days for re-evaluation and further management. Call their office tomorrow morning at 9:00 a.m. For appointment time. Explain this is for an emergency department follow-up. Narcotic pain medication: 1-2 every 4-6 hours as needed for pain. Do not drive on this medication. Take antibiotic as prescribed: I have cultured your urine. If this is negative the antibiotic can be discontinued. Have your primary care physician or urology follow-up on this urine culture result. Drink lots of fluids. Do not take ibuprofen or other NSAID like medications. Keep yourself well hydrated. Your creatinine which is a measure of your kidney function is also elevated and needs to be followed closely by your primary care physician or urologist. Your creatinine should be rechecked on follow-up in a couple of days. Return to the emergency department for worsening or uncontrolled pain, fever, difficulty urinating, vomiting or other serious concerns. Referrals: Geneva Laureano MD [Medical Doctor] - As per Instructions
[2018-05-27 15:51] LABS: PLATELET COUNT 287 10^3/uL (150-400)
[2018-05-27] MEDS ORDERED: IOPAMIDOL (ISOVUE 370) 100 ML BTL IV ONE (16:42)
[2018-05-27 17:42] VITALS: BP 135/80
[2018-05-27] MEDS ORDERED: TAMSULOSIN HCL 0.4 MG CAP PO ONE (17:57)
[2018-05-27] MEDS ORDERED: CEPHALEXIN 500 MG CAP PO ONE (17:59)
[2018-05-27] MEDS ORDERED: HYDROCOD/APAP 5/325 PREPACK#6 BTL TAKEHOME ONE ×2 (18:20)
== END 2018-05-27 18:40 | disposition home or self-care (01) ==
DX: N20.0 Calculus of kidney (principal); N28.9 Disorder of kidney and ureter, unspecified
CPT/HCPCS: 74177; 99285; Q9967

== ENCOUNTER 2018-05-29 09:41 | Inpatient (IN) | payer OTHER, MEDICARE ==
[2018-05-29] MEDS ORDERED: DIAZEPAM 5 MG TAB PO ONE (10:19)
[2018-05-29] MEDS ORDERED: fentaNYL 100 MCG/2 ML INJ IVP ONE (10:19)
[2018-05-29 10:46] LABS: PLATELET COUNT 267 10^3/uL (150-400)
[2018-05-29] MEDS ORDERED: NS 1,000 ML IV ONE (11:18)
--- NOTE | 2018-05-29 11:58 | EDPHY ---
General Time Seen by Provider: 05/29/18 10:05 Narrative: CLINICAL IMPRESSION: Acute renal insufficiency, infected left ureterolithiasis ASSESSMENT/PLAN: 73-year-old female presents to the emergency department for the 2nd time in 2 days with complaints of persistent left flank and left lower quadrant abdominal pain in the setting of recently diagnosed left ureterolithiasis with UTI. Patient reports her pain is not worsening but it is not improving. No associated fever, chills, vomiting, diarrhea, bloody stools, urinary retention. She has been compliant with Keflex at home. Urine culture positive for E coli , with multi-drug susceptibility, including cephalosporins. Urine continues to appear infected today, she has worsening renal insufficiency with a creatinine of 1.6 today, up from 1.4 2 days ago. She has a slightly worsening leukocytosis today with no metabolic disturbance or electrolyte imbalance. Normal lactate, blood cultures ordered, no e/o sepsis or SIRS criteria. Two view abdominal x-rays did not identify ureteral stone today. Patient reports a past history of bacteremia from unknown cause and given that her pain is persistent, she has worsening renal insufficiency and persistent pyuria with leukocytosis I am concerned she has a infected stone. I discussed with Adriana from hospitalist service who will agree to admit to Dr. Batres. Patient is in agreement with this plan. Her pain was improved with Valium and fentanyl in the ED. I avoided Toradol given her renal insufficiency. Case discussed with Dr. Llamas. DIFFERENTIAL DX: Differential includes but not limited to infected ureterolithiasis, UTI, renal insufficiency, obstructive ureterolithiasis ED PROCEDURES: See lab and/or imaging results below ED COURSE: 1145: Lab results discussed with the patient and Dr. Llamas. I am concerned that she is developing worsening renal insufficiency, a slight elevation in her white count from 2 days ago as well as new anemia. She is not tachycardic, hypotensive, or febrile. I did order lactate and blood cultures given past history of sepsis. I am concerned she has a infected ureterolithiasis. Will plan to admit. IV Rocephin initiated in the ED. Hospitalist paged. Patient agreeable to admission. CHIEF COMPLAINT: Left flank pain, recent diagnosis of kidney stone HPI: Very pleasant 73-year-old female presents to the emergency department with complaints of persistent left flank and left-sided abdominal pain. Patient was seen in our ED 2 days ago, diagnosed with a left-sided ureterolithiasis which she reports she has not yet passed. She was given a 1 time dose of Toradol but then found to have renal insufficiency and was sent home only with Flomax and En[place]. She reports Enid is not controlling her pain well. She is taking Flomax. She was also found to have a probable UTI, was started on Keflex, and has been compliant with this. A urine culture was sent. She reports no fevers at home, has felt nauseous but no vomiting. She reports pain is not necessarily worse but is persistent. She is able to void and has no complaints of urinary retention. She reports a past history of chronic renal insufficiency but does not know what her baseline creatinine is. She saw a urologist many many years ago because she"did not absorb magnesium well". She also reports a past history of sepsis from unknown causes which left her with chronic pulmonary insufficiency requiring daily oxygen. She reports normal bowel habits, no diarrhea or bloody stools. PAST MEDICAL HISTORY: Diverticulosis, colitis, angina, previous history of sepsis, chronic back pain See nurse/triage notes for additional history if applicable Pertinent Past Surgical History: Prior right knee surgery Family History: None reported Social History: Lives alone, nonsmoker, does not drink alcohol REVIEW OF SYSTEMS: All other systems negative Constitutional: No fever, no chills, appetite change. Cardiovascular: No chest pain, no palpitations. Respiratory: No cough, no shortness of breath. Gastrointestinal: Positive for abdominal pain, no vomiting, diarrhea. Genitourinary: No hematuria, dysuria, positive for left-sided flank pain, pelvic pain Musculoskeletal: Positive for left-sided back pain, joint swelling, joint pain , myalgias. Skin: No rashes, color change. Neurological: No headache, dizziness, weakness. PHYSICAL EXAM: General Appearance: Alert, oriented, appropriate, cooperative, NAD, overweight , well hydrated, non-toxic appearing, VSS, on oxygen at baseline. HEENT: Oropharynx clear is no erythema or exudates, no tonsillar hypertrophy or asymmetry. Dentition without abnormality.] Neck: Supple, nontender, no lymphadenopathy, no midline pain, FROM, no meningismus. Respiratory: There are no retractions, lungs are clear to auscultation. Cardiac: Regular rate and rhythm, no murmurs or gallops. Gastrointestinal: Abdomen is soft, left lower quadrant abdominal pain radiating to left flank. bowel sounds normal, no masses/hernia, no rigidity, guarding or focal peritoneal findings. Neurological: Alert and oriented x 3, CN 2-12 grossly intact Skin: Warm, dry, no rashes, no nodules on palpation. Musculoskeletal: Extremities are symmetrical, full range of motion, no tenderness, deformity, swelling, or erythema. MEDICAL DECISION MAKING: Patient was seen independently. Secondary supervising physician at time of evaluation was Dr. Llamas . Diagnosis: Left ureterolithiasis, urinary tract infection, renal insufficiency . New, requires workup Summary: See Assessment and Plan for summary of ED visit Clinical lab tests: ordered / reviewed. Independent visualization of images, tracing, or specimens: Yes. Decision to obtain medical records or history from someone other than the patient: No Review / Summarize previous medical records: Reviewed last ED notes and previous chart notes and labs Discussed patient with another provider: Adriana Kam from hospitalist service Patient Progress: Stable. - Diagnostics Imaging Results: Imaging Impressions Abdomen X-Ray 05/29/18 11:40 Impression: Nonvisualization of the left ureteral stone seen on CT. This could be related to interval passage or technical factors. - History Smoking Status: Former smoker - Objective Vital Signs: Initial Vital Signs Temperature (C) 36.9 C 05/29/18 09:46 Heart Rate 75 05/29/18 09:46 Respiratory Rate 16 05/29/18 09:46 Blood Pressure 128/64 H 05/29/18 09:46 O2 Sat (%) 93 05/29/18 09:46 O2 Delivery Mode Nasal Cannula O2 (L/minute) 2 Allergies/Adverse Reactions: adhesive tape Allergy (Verified 05/29/18 09:52) Rash nickel Allergy (Verified 05/29/18 09:52) horrible rash Sulfa (Sulfonamide Antibiotics) Allergy (Verified 05/29/18 09:52) Rash Home Medications: Medication Instructions Recorded Budesonide [Budesonide EC] 3 mg PO DAILY 04/29/17 Cholecalciferol Vit D3 [Vitamin D3 2,000 units PO HS 04/29/17 2000 units tab (OTC)] Ferrous Sulfate [Ferrous Sulf 325 325 mg PO BID 04/29/17 MG (*)] Glucosamine Sulfate [Glucosamine 1,000 mg PO HS 04/29/17 Sulfate 500 MG (*)] Herbals/Supplements -Info Only 1 ea PO DAILY 04/29/17 Metoprolol Succinate Xr [Toprol Xl 50 mg PO DAILY 04/29/17 50 mg (*)] Rosuvastatin Calcium [Crestor] 10 mg PO HS 04/29/17 Vitamin B Complex [B Complex] 1 each PO DAILY 04/29/17 Losartan Potassium [Cozaar 50 mg 50 mg PO DAILY 02/17/18 (*)] [place]-3 Fatty Acids [Fish Oil 1000 1,000 mg PO DAILY 02/17/18 mg (*)] Lact Cmb2/S.thermophl/Bif Cmb1 1 each PO DAILY 03/20/18 [Vsl#3 Cap (*)] Aspirin [Aspirin 81mg (*)] 81 mg PO HS 05/29/18 Docusate Sodium [Colace 100 MG (*)] 100 mg PO DAILY 05/29/18 Laboratory Results: Laboratory Results 05/29/18 10:30 05/29/18 10:30 05/29/18 05/29/18 05/29/18 11:55 10:30 10:30 WBC 14.56 10^3/uL H 10^3/uL (3.80-9.50) RBC 3.97 10^6/uL L 10^6/uL (4.18-5.33) Hgb 12.5 g/dL L g/dL (12.6-16.3) Hct 37.1 % L % (38.0-47.0) MCV 93.5 fL fL (81.5-99.8) MCH 31.5 pg pg (27.9-34.1) MCHC 33.7 g/dL g/dL (32.4-36.7) RDW 12.9 % % (11.5-15.2) Plt Count 267 10^3/uL 10^3/uL (150-400) MPV 9.7 fL fL (8.7-11.7) Neut % (Auto) 83.2 % H % (39.3-74.2) Lymph % (Auto) 6.3 % L % (15.0-45.0) [place] % (Auto) 8.9 % % (4.5-13.0) Eos % (Auto) 1.0 % % (0.6-7.6) Baso % (Auto) 0.2 % L % (0.3-1.7) Nucleat RBC Rel Count 0.0 % % (0.0-0.2) Absolute Neuts (auto) 12.11 10^3/uL H 10^3/uL (1.70-6.50) Absolute Lymphs (auto) 0.92 10^3/uL L 10^3/uL (1.00-3.00) Absolute Monos (auto) 1.30 10^3/uL H 10^3/uL (0.30-0.80) Absolute Eos (auto) 0.14 10^3/uL 10^3/uL (0.03-0.40) Absolute Basos (auto) 0.03 10^3/uL 10^3/uL (0.02-0.10) Absolute Nucleated RBC 0.00 10^3/uL 10^3/uL (0-0.01) Immature Gran % 0.4 % % (0.0-1.1) Immature Gran # 0.06 10^3/uL 10^3/uL (0.00-0.10) VBG Lactic Acid 1.1 mmol/L mmol/L (0.7-2.1) Sodium 134 mEq/L L mEq/L (135-145) Potassium 4.2 mEq/L mEq/L (3.5-5.2) Chloride 102 mEq/L mEq/L (97-110) Carbon Dioxide 24 mEq/l mEq/l (22-31) Anion Gap 8 mEq/L mEq/L (6-14) BUN 29 mg/dL H mg/dL (7-23) Creatinine 1.6 mg/dL H mg/dL (0.6-1.0) Estimated GFR 32 Glucose 110 mg/dL H mg/dL (70-100) Calcium 9.5 mg/dL mg/dL (8.5-10.4) Urine Color Urine Appearance Urine pH Ur Specific [place] Urine Protein Urine Ketones Urine Blood Urine Nitrate Urine Bilirubin Urine Urobilinogen Ur Leukocyte Esterase Urine RBC Urine WBC Ur Epithelial Cells Urine Mucus Urine Glucose 05/29/18 09:45 WBC RBC Hgb Hct MCV MCH MCHC RDW Plt Count MPV Neut % (Auto) Lymph % (Auto) [place] % (Auto) Eos % (Auto) Baso % (Auto) Nucleat RBC Rel Count Absolute Neuts (auto) Absolute Lymphs (auto) Absolute Monos (auto) Absolute Eos (auto) Absolute Basos (auto) Absolute Nucleated RBC Immature Gran % Immature Gran # VBG Lactic Acid Sodium Potassium Chloride Carbon Dioxide Anion Gap BUN Creatinine Estimated GFR Glucose Calcium Urine Color YELLOW Urine Appearance HAZY Urine pH 5.0 (5.0-7.5) Ur Specific [place] 1.012 (1.002-1.030) Urine Protein NEGATIVE (NEGATIVE) Urine Ketones NEGATIVE (NEGATIVE) Urine Blood 3+ H (NEGATIVE) Urine Nitrate NEGATIVE (NEGATIVE) Urine Bilirubin NEGATIVE (NEGATIVE) Urine Urobilinogen NEGATIVE EU EU (0.2-1.0) Ur Leukocyte Esterase TRACE H (NEGATIVE) Urine RBC 15-25 /hpf H /hpf (0-3) Urine WBC 3-5 /hpf H /hpf (0-3) Ur Epithelial Cells TRACE /lpf /lpf (NONE-1+) Urine Mucus TRACE /lpf /lpf (NONE-1+) Urine Glucose NEGATIVE (NEGATIVE) Medications Given: Acetaminophen (Tylenol) 1,000 mg PO Q8HRS MARIAM Stop: 11/25/18 14:29 Last Admin: 05/29/18 16:00 Dose: 1,000 mg Oxycodone HCl (Oxycodone Ir) 5 - 10 mg PO Q3HRS PRN PRN Reason: Pain, Severe Able to Take PO Stop: 06/08/18 12:48 Last Admin: 05/29/18 16:02 Dose: 5 mg Discontinued Medications Diazepam (Valium) 2.5 mg PO EDNOW ONE Stop: 05/29/18 10:20 Last Admin: 05/29/18 10:28 Dose: 2.5 mg Fentanyl (Sublimaze) 25 mcg IVP EDNOW ONE Stop: 05/29/18 10:20 Last Admin: 05/29/18 10:29 Dose: 25 mcg Sodium Chloride (Ns) 1,000 mls @ 0 mls/hr IV EDNOW ONE; Wide Open PRN Reason: Protocol Stop: 05/29/18 11:19 Last Admin: 05/29/18 11:23 Dose: 1,000 mls Ceftriaxone Sodium/Dextrose (Rocephin 1 Gm (Premix)) 50 mls @ 100 mls/hr IV EDNOW ONE PRN Reason: Protocol Stop: 05/29/18 12:08 Last Admin: 05/29/18 12:41 Dose: 50 mls Departure - Departure Disposition: [facility] Inpatient Acute Clinical Impression: Acute renal insufficiency, Ureterolithiasis, UTI (urinary tract infection), bacterial Condition: Fair
[2018-05-29] MEDS ORDERED: HYDROmorphONE/DILAUDID 1 MG/ML INJ IVP PRN (12:49)
[2018-05-29] MEDS ORDERED: ONDANSETRON DISINTEGRATING 4 MG TAB PO PRN (12:49)
[2018-05-29] MEDS ORDERED: ONDANSETRON 4 MG/2 ML VIAL IVP PRN (12:49)
[2018-05-29] MEDS ORDERED: NS 1,000 ML IV SCH (13:00)
--- NOTE | 2018-05-29 13:25 | PDGENHP ---
<Melia Kyle - Last Filed: 05/29/18 14:09> History and Physical - Chief Complaint Left flank pain, LLQ abdominal pain - History of Present Illness This is a 73 y/o female presenting to the emergency room with persistent left sided flank and abdominal pain. She was seen here in the emergency room 2 days ago with similar symptoms and CT abdomen and pelvis scan revealed a 4 mm left- sided distal urethral stone with mild hydronephrosis. Urinalysis was obtained and showed probable UTI, urine culture was sent. Her pain was well-controlled and she was discharged home with [place], Flomax, and Keflex. Today, she presents because the pain has not worsened but it continues to be persistent. She has not yet passed the stone. She endorses nausea and abdominal tenderness. No vomiting, fever, chills, chest pains. Denies dysuria however because of the amount of fluid intake, urinary frequency. Her WBCs elevated slightly since Saturday as well as her BUN/Creatinine. She is being admitted for further diagnostic work-up and monitoring. Past Medical/Surgical History 1. Chronic renal insufficiency 2. Obstructive sleep apnea with CPAP 3. Chronic pulmonary insufficiency s/p sepsis (April 2017). Chronically wears 2-3 L NC supplemental oxygen 4. Diverticulosis 5. Colitis 6. Angina 7. Chronic back pain 8. Coronary artery disease s/p 3 stent (~12 years ago) 9. Right knee arthroplasty (March 2018) 10. Hysterectomy 11. D&C's 12. Cholecystectomy Social 1. . in January 2018 d/t cancer 2. Former smoker. Quit 15 years ago. Denies illicit drugs. Rarely drinks alcohol. History Information - Allergies/Home Medication List Allergies/Adverse Reactions: adhesive tape Allergy (Verified 05/29/18 09:52) Rash nickel Allergy (Verified 05/29/18 09:52) horrible rash Sulfa (Sulfonamide Antibiotics) Allergy (Verified 05/29/18 09:52) Rash Home Medications: Budesonide [Budesonide EC] 3 mg PO DAILY 04/29/17 [Last Taken 05/29/18] Cholecalciferol Vit D3 [Vitamin D3 2000 units tab (OTC)] 2,000 units PO HS 04/29 [Last Taken 05/28/18] Ferrous Sulfate [Ferrous Sulf 325 MG (*)] 325 mg PO BID 04/29/17 [Last Taken ] Glucosamine Sulfate [Glucosamine Sulfate 500 MG (*)] 1,000 mg PO HS 04/29/17 [ Last Taken 05/28/18] Herbals/Supplements -Info Only 1 ea PO DAILY 04/29/17 [Last Taken 03/03/18] Metoprolol Succinate Xr [Toprol Xl 50 mg (*)] 50 mg PO DAILY 04/29/17 [Last Taken 05/29/18] Rosuvastatin Calcium [Crestor] 10 mg PO HS 04/29/17 [Last Taken 05/28/18] Vitamin B Complex [B Complex] 1 each PO DAILY 04/29/17 [Last Taken 05/29/18] Losartan Potassium [Cozaar 50 mg (*)] 50 mg PO DAILY 02/17/18 [Last Taken ] [place]-3 Fatty Acids [Fish Oil 1000 mg (*)] 1,000 mg PO DAILY 02/17/18 [Last Taken 05/28/18] Lact Cmb2/S.thermophl/Bif Cmb1 [Vsl#3 Cap (*)] 1 each PO DAILY 03/20/18 [Last Taken 05/28/18] Aspirin [Aspirin 81mg (*)] 81 mg PO HS 05/29/18 [Last Taken 05/28/18] Docusate Sodium [Colace 100 MG (*)] 100 mg PO DAILY 05/29/18 [Last Taken ] I have personally reviewed and updated: family history, medical history, social history, surgical history - Past Medical History Additional medical history: See HPI list - Surgical History Additional surgical history: See HPI list - Family History Positive for: non-pertinent - Social History Smoking Status: Former smoker Alcohol Use: Rarely Drug Use: None Review of Systems Review of Systems: ROS: 10pt was reviewed & negative except for what was stated in HPI & below Constitutional: Reports: no symptoms EENMT: Reports: no symptoms Cardiac: Reports: no symptoms Respiratory: Reports: no symptoms Gastrointestinal: Reports: abdominal pain, constipation, nausea Genitourinary: Reports: frequency Muscolosketal: Reports: back pain, other (Left sided flank pain) Skin: Reports: no symptoms Neurological: Reports: depressed Hematologic/Lymphatic: Reports: no symptoms Immunologic/Allergy: Reports: other (See allergy list) Physical Exam Physical Exam: Lab data and imaging reviewed Temp Pulse Resp BP Pulse Ox 36.7 C 66 18 135/68 H 96 05/29/18 12:45 05/29/18 12:45 05/29/18 12:45 05/29/18 12:45 05/29/18 12:45 O2 (L/minute) 2 Constitutional: no apparent distress, appears nourished, not in pain Eyes: PERRL, anicteric sclera, EOMI Ears, Nose, Mouth, Throat: moist mucous membranes, hearing normal, ears appear normal, no oral mucosal ulcers Cardiovascular: regular rate and rhythym, no murmur, rub, or gallop, No edema Peripheral Pulses: 2+: dorsalis-pedis (R) (Radial 2+), dorsalis-pedis (L) ( Radial 2+) Respiratory: no respiratory distress, no rales or rhonchi, clear to auscultation Gastrointestinal: normoactive bowel sounds, no palpable masses, tenderness, other (+left sided CVA tenderness) Genitourinary: no bladder fullness, no bladder tenderness Skin: warm, normal color, no rashes or abrasions, no fluctuance, no induration, No mottled Musculoskeletal: full muscle strength, no muscle tenderness, normal joint ROM, no joint effusions Neurologic: AAOx3, sensation intact bilaterally, CN II-XII Intact Psychiatric: interacting appropriately, not anxious, not encephalopathic, thought process linear Lymph, Heme, Immunologic: no cervical LAD, no supraclavicular LAD Lab Data & Imaging Review 05/29/18 10:30 05/29/18 10:30 WBC 14.56 10^3/uL (3.80-9.50) H 05/29/18 10:30 RBC 3.97 10^6/uL (4.18-5.33) L 05/29/18 10:30 Hgb 12.5 g/dL (12.6-16.3) L 05/29/18 10:30 Hct 37.1 % (38.0-47.0) L 05/29/18 10:30 MCV 93.5 fL (81.5-99.8) 05/29/18 10:30 MCH 31.5 pg (27.9-34.1) 05/29/18 10:30 MCHC 33.7 g/dL (32.4-36.7) 05/29/18 10:30 RDW 12.9 % (11.5-15.2) 05/29/18 10:30 Plt Count 267 10^3/uL (150-400) 05/29/18 10:30 MPV 9.7 fL (8.7-11.7) 05/29/18 10:30 Neut % (Auto) 83.2 % (39.3-74.2) H 05/29/18 10:30 Lymph % (Auto) 6.3 % (15.0-45.0) L 05/29/18 10:30 [place] % (Auto) 8.9 % (4.5-13.0) 05/29/18 10:30 Eos % (Auto) 1.0 % (0.6-7.6) 05/29/18 10:30 Baso % (Auto) 0.2 % (0.3-1.7) L 05/29/18 10:30 Nucleat RBC Rel Count 0.0 % (0.0-0.2) 05/29/18 10:30 Absolute Neuts (auto) 12.11 10^3/uL (1.70-6.50) H 05/29/18 10:30 Absolute Lymphs (auto) 0.92 10^3/uL (1.00-3.00) L 05/29/18 10:30 Absolute Monos (auto) 1.30 10^3/uL (0.30-0.80) H 05/29/18 10:30 Absolute Eos (auto) 0.14 10^3/uL (0.03-0.40) 05/29/18 10:30 Absolute Basos (auto) 0.03 10^3/uL (0.02-0.10) 05/29/18 10:30 Absolute Nucleated RBC 0.00 10^3/uL (0-0.01) 05/29/18 10:30 Immature Gran % 0.4 % (0.0-1.1) 05/29/18 10:30 Immature Gran # 0.06 10^3/uL (0.00-0.10) 05/29/18 10:30 VBG Lactic Acid 1.1 mmol/L (0.7-2.1) 05/29/18 11:55 Sodium 134 mEq/L (135-145) L 05/29/18 10:30 Potassium 4.2 mEq/L (3.5-5.2) 05/29/18 10:30 Chloride 102 mEq/L (97-110) 05/29/18 10:30 Carbon Dioxide 24 mEq/l (22-31) 05/29/18 10:30 Anion Gap 8 mEq/L (6-14) 05/29/18 10:30 BUN 29 mg/dL (7-23) H 05/29/18 10:30 Creatinine 1.6 mg/dL (0.6-1.0) H 05/29/18 10:30 Estimated GFR 32 05/29/18 10:30 Glucose 110 mg/dL (70-100) H 05/29/18 10:30 Calcium 9.5 mg/dL (8.5-10.4) 05/29/18 10:30 Urine Color YELLOW 05/29/18 09:45 Urine Appearance HAZY 05/29/18 09:45 Urine pH 5.0 (5.0-7.5) 05/29/18 09:45 Ur Specific [place] 1.012 (1.002-1.030) 05/29/18 09:45 Urine Protein NEGATIVE (NEGATIVE) 05/29/18 09:45 Urine Ketones NEGATIVE (NEGATIVE) 05/29/18 09:45 Urine Blood 3+ (NEGATIVE) H 05/29/18 09:45 Urine Nitrate NEGATIVE (NEGATIVE) 05/29/18 09:45 Urine Bilirubin NEGATIVE (NEGATIVE) 05/29/18 09:45 Urine Urobilinogen NEGATIVE EU (0.2-1.0) 05/29/18 09:45 Ur Leukocyte Esterase TRACE (NEGATIVE) H 05/29/18 09:45 Urine RBC 15-25 /hpf (0-3) H 05/29/18 09:45 Urine WBC 3-5 /hpf (0-3) H 05/29/18 09:45 Ur Epithelial Cells TRACE /lpf (NONE-1+) 05/29/18 09:45 Urine Mucus TRACE /lpf (NONE-1+) 05/29/18 09:45 Urine Glucose NEGATIVE (NEGATIVE) 05/29/18 09:45 Assessment & Plan Plan: This is a 73 y/o female with a 4 mm left-sided ureterolithiasis that has not passed, experiencing an active urinary tract infection. Subsequently in acute renal insufficiency. 1. Ureterolithiasis: Recent CT abdomen scan reveals a 4 mm left sided distal ureterolithiasis with mild hydronephrosis as well as a non-obstructive right renal stone. Abdomen x-ray is unremarkable and cannot visualize the stone. -Pain management PO/IVP PRN: Tylenol Q8H scheduled, Dilaudid IVP and Oxy IR PO PRN -Avoiding NSAIDs for now d/t her renal insufficiency -IVF -Considered urology consult; will hold on this for now and see if pt is able to pass stone -Continue use of Flomax 2. Acute renal insufficiency on chronic renal insufficiency: baseline is BUN/ Creatinine ~18/1.1. Today is 29/1.6. Saturday was 23/1.4. I suspect her mild anemia is in relation with her renal function. -IVF -Avoid nephrotoxic agents including NSAIDs -Will recheck CBC/BMP tomorrow to monitor renal function 3. Urinary tract infection: she has been compliant with her Keflex medication. She received one tablet of Keflex in the emergency room on Saturday and was prescribed #28 tablets at discharge. Since then, she has taken a total of 6 tablets. Urine culture shows e-coli with sensitivity to ceftriaxone. -She received Ceftrixone in the emergency room; we will continue ceftriaxone. Her next dose will be tomorrow -IVF 4. Hypertension: currently stable. She may continue metoprolol. Holding losartan d/t renal function. Home medications holding for now until improvement with renal function: ferrous sulfate, glucosamine, losartan, omega-3 fish oil, rosuvastatin, and vitamin B. Diet: Regular VTE ppx: SCDs, ASA, ambulate in room ad rema Code: DNR Dispo: Admit to obs <Lazara Batres - Last Filed: 05/29/18 16:30> History and Physical - History of Present Illness Review of Systems Review of Systems: Physical Exam Physical Exam: Temp Pulse Resp BP Pulse Ox 36.9 C 105 H 20 113/84 H 90 L 05/29/18 15:34 05/29/18 15:34 05/29/18 15:34 05/29/18 15:34 05/29/18 15:34 O2 (L/minute) 2.0 Lab Data & Imaging Review 05/29/18 10:30 05/29/18 10:30 WBC 14.56 10^3/uL (3.80-9.50) H 05/29/18 10:30 RBC 3.97 10^6/uL (4.18-5.33) L 05/29/18 10:30 Hgb 12.5 g/dL (12.6-16.3) L 05/29/18 10:30 Hct 37.1 % (38.0-47.0) L 05/29/18 10:30 MCV 93.5 fL (81.5-99.8) 05/29/18 10:30 MCH 31.5 pg (27.9-34.1) 05/29/18 10:30 MCHC 33.7 g/dL (32.4-36.7) 05/29/18 10:30 RDW 12.9 % (11.5-15.2) 05/29/18 10:30 Plt Count 267 10^3/uL (150-400) 05/29/18 10:30 MPV 9.7 fL (8.7-11.7) 05/29/18 10:30 Neut % (Auto) 83.2 % (39.3-74.2) H 05/29/18 10:30 Lymph % (Auto) 6.3 % (15.0-45.0) L 05/29/18 10:30 [place] % (Auto) 8.9 % (4.5-13.0) 05/29/18 10:30 Eos % (Auto) 1.0 % (0.6-7.6) 05/29/18 10:30 Baso % (Auto) 0.2 % (0.3-1.7) L 05/29/18 10:30 Nucleat RBC Rel Count 0.0 % (0.0-0.2) 05/29/18 10:30 Absolute Neuts (auto) 12.11 10^3/uL (1.70-6.50) H 05/29/18 10:30 Absolute Lymphs (auto) 0.92 10^3/uL (1.00-3.00) L 05/29/18 10:30 Absolute Monos (auto) 1.30 10^3/uL (0.30-0.80) H 05/29/18 10:30 Absolute Eos (auto) 0.14 10^3/uL (0.03-0.40) 05/29/18 10:30 Absolute Basos (auto) 0.03 10^3/uL (0.02-0.10) 05/29/18 10:30 Absolute Nucleated RBC 0.00 10^3/uL (0-0.01) 05/29/18 10:30 Immature Gran % 0.4 % (0.0-1.1) 05/29/18 10:30 Immature Gran # 0.06 10^3/uL (0.00-0.10) 05/29/18 10:30 VBG Lactic Acid 1.1 mmol/L (0.7-2.1) 05/29/18 11:55 Sodium 134 mEq/L (135-145) L 05/29/18 10:30 Potassium 4.2 mEq/L (3.5-5.2) 05/29/18 10:30 Chloride 102 mEq/L (97-110) 05/29/18 10:30 Carbon Dioxide 24 mEq/l (22-31) 05/29/18 10:30 Anion Gap 8 mEq/L (6-14) 05/29/18 10:30 BUN 29 mg/dL (7-23) H 05/29/18 10:30 Creatinine 1.6 mg/dL (0.6-1.0) H 05/29/18 10:30 Estimated GFR 32 05/29/18 10:30 Glucose 110 mg/dL (70-100) H 05/29/18 10:30 Calcium 9.5 mg/dL (8.5-10.4) 05/29/18 10:30 Urine Color YELLOW 05/29/18 09:45 Urine Appearance HAZY 05/29/18 09:45 Urine pH 5.0 (5.0-7.5) 05/29/18 09:45 Ur Specific [place] 1.012 (1.002-1.030) 05/29/18 09:45 Urine Protein NEGATIVE (NEGATIVE) 05/29/18 09:45 Urine Ketones NEGATIVE (NEGATIVE) 05/29/18 09:45 Urine Blood 3+ (NEGATIVE) H 05/29/18 09:45 Urine Nitrate NEGATIVE (NEGATIVE) 05/29/18 09:45 Urine Bilirubin NEGATIVE (NEGATIVE) 05/29/18 09:45 Urine Urobilinogen NEGATIVE EU (0.2-1.0) 05/29/18 09:45 Ur Leukocyte Esterase TRACE (NEGATIVE) H 05/29/18 09:45 Urine RBC 15-25 /hpf (0-3) H 05/29/18 09:45 Urine WBC 3-5 /hpf (0-3) H 05/29/18 09:45 Ur Epithelial Cells TRACE /lpf (NONE-1+) 05/29/18 09:45 Urine Mucus TRACE /lpf (NONE-1+) 05/29/18 09:45 Urine Glucose NEGATIVE (NEGATIVE) 05/29/18 09:45 Assessment & Plan Assessment: Acute renal insufficiency (Acute) Ureterolithiasis (Acute) UTI (urinary tract infection), bacterial (Acute)
[2018-05-29] MEDS ORDERED: ACETAMINOPHEN 325 MG TAB PO SCH (14:00)
[2018-05-29] MEDS: ACETAMINOPHEN 500 MG TAB PO SCH ×3 (15:06→21:56)
[2018-05-29] MEDS: oxyCODONE IR 5 MG TAB PO PRN ×2 (15:07→16:02)
--- NOTE | 2018-05-29 16:33 | HOSPPROG ---
Hospitalist Progress Note Assessment/Plan: Discussed case with Linda Kyle EMAIL MARKETING MANAGER. Patient seen and examined. Agree with plan as outlined by Linda Kyle. Objective: Vital Signs Temp Pulse Resp BP Pulse Ox 36.9 C 105 H 20 113/84 H 90 L 05/29/18 15:34 05/29/18 15:34 05/29/18 15:34 05/29/18 15:34 05/29/18 15:34 AXR viewed, my personal interpretation is - no stone, no obstruction Old chart reviewed regarding - urine culture results, CT reviewed Laboratory Tests 05/29/18 05/29/18 10:30 10:30 WBC 14.56 H Hct 37.1 L Plt Count 267 Creatinine 1.6 H - Physical Exam Constitutional: no apparent distress, appears nourished, not in pain Cardiovascular: regular rate and rhythym, no murmur, rub, or gallop Respiratory: no respiratory distress, no rales or rhonchi, clear to auscultation Gastrointestinal: normoactive bowel sounds, soft, non-tender abdomen, no palpable masses Skin: no rashes or abrasions, no fluctuance, no induration Neurologic: AAOx3, sensation intact bilaterally Psychiatric: interacting appropriately, not anxious, not encephalopathic, thought process linear ICD10 Worksheet Patient Problems: Problems Problem Status Onset Acute renal insufficiency Acute Ureterolithiasis Acute UTI (urinary tract infection), bacterial Acute Primary localized osteoarthritis of right knee Acute Urinary tract infection Acute GI bleed Acute Elevated serum lactate dehydrogenase Acute Hypotension Acute
[2018-05-29] MEDS: CALCIUM CARBONATE 500 MG CHEWABLE TAB PO PRN ×2 (16:41→20:30)
[2018-05-29] MEDS: CHOLECALCIFEROL VIT D3 2,000 UNITS TAB/CAP PO SCH (20:30)
[2018-05-29] MEDS: ASPIRIN 81 MG CHEWABLE TAB PO SCH (20:31)
[2018-05-29] MEDS: METOPROLOL SUCCINATE XR 25 MG TAB PO SCH (21:54)
[2018-05-29] MEDS: ROSUVASTATIN CALCIUM 10 MG TAB PO SCH (21:54)
[2018-05-29] MEDS: DOCUSATE SODIUM 100 MG CAP PO SCH (21:56)
[2018-05-30 04:38] LABS: PLATELET COUNT 234 10^3/uL (150-400)
[2018-05-30] MEDS: ACETAMINOPHEN 500 MG TAB PO SCH ×2 (05:51→19:36)
[2018-05-30] MEDS: TAMSULOSIN HCL 0.4 MG CAP PO SCH (08:22)
[2018-05-30] MEDS: BUDESONIDE 3 MG EC CAP PO SCH (08:22)
[2018-05-30] MEDS: METOPROLOL SUCCINATE XR 25 MG TAB PO SCH ×2 (08:23→19:49)
[2018-05-30] MEDS ORDERED: METOPROLOL SUCCINATE XR 50 MG TAB PO SCH (09:00)
[2018-05-30] MEDS ORDERED: POLYETHYLENE GLYCOL 3350 17 GM PKT PO PRN (09:48)
[2018-05-30] MEDS ORDERED: MAGNESIUM HYDROXIDE 30 ML UDCUP PO PRN (09:48)
[2018-05-30] MEDS ORDERED: BISACODYL 10 MG SUPP PR PRN (09:48)
[2018-05-30] MEDS ORDERED: LACTULOSE 20 GM/30 ML UDCUP PO PRN (09:48)
--- NOTE | 2018-05-30 14:17 | GCON ---
DATE OF CONSULTATION: 05/30/2018 REASON FOR CONSULT: Left ureteral stone, left flank pain. This is a pleasant 73-year-old female who came to the emergency room for the second time in 2 days wi th left flank pain and left lower quadrant pain. The day before, she had a CT that showed a distal 4 mm left stone. The patient reports no history of kidney stones in the past. PAST MEDICAL HISTORY: Chronic renal insufficiency, obstructive sleep apnea on CPAP, chronic pulmonar y insufficiency, sepsis in 2017, chronically wears 2 to 3 liters oxygen, diverticulosis, colitis, ang bret, chronic back pain, coronary artery disease post stent, right knee arthroplasty, hysterectomy, di lations and curettages, cholecystectomy. SOCIAL HISTORY: . in 2018. Former smoker. Rarely drinks alcohol. ALLERGIES: Adhesive tape, nickel, sulfa. HOME MEDICATIONS: , vitamin D3, ferrous sulfate, glucosamine oral supplements, metoprolol, Crestor, vitamin B, Cozaar, fish oil, aspirin, Colace. PHYSICAL EXAM: VITAL SIGNS: Blood pressure 117/66, heart rate 62, respiratory rate 15. O2 saturati on percent 98 on CPAP. Temperature 36.9. GENERAL: This is a well-developed, obese female in no acu te distress. HEENT: Normocephalic, atraumatic. Extraocular movements intact. NECK: Supple. No l ymphadenopathy. Trachea midline. RESPIRATORY: No accessory respiratory muscle use. Is using suppl emental oxygen. CARDIAC: Regular rate and rhythm. No lower extremity edema. No obvious JVD. ABDO MEN: Obese with no hepatosplenomegaly. She is tender in her left lower quadrant to palpation. INTE GUMENT: No obvious rashes or lesions. MUSCULOSKELETAL: She was supine. Moving upper arms without difficulty. NEUROLOGIC: Alert and oriented. Affect appropriate to situation. ASSESSMENT AND PLAN: Left ureteral stone. I have reviewed her images personally which showed the CAT scan on 05/28/2018 shows a distal stone no t readily visible on today's ultrasound and x-ray; however, patient still is symptomatic, especially tender to palpation. Discussed options with her including going home on Flomax and attempting to pas s the stone at home versus surgery. The patient requests repeat CAT scan to confirm that stone is st ill there, and then, surgery will be arranged for removal of stone. Risks and benefits of surgery we re discussed orally with patient. /[id number]/MODL
--- NOTE | 2018-05-30 16:41 | ASMTCMCOM ---
CM Note CM Note Notes: Patient admitted for L sided flank pain. She was recently seen in the ED for the same and prescribed antibiotics for a UTI. Upon imaging, she has a kidney stone and is considering surgery. Urology following. PT/OT ordered. Case Management will follow for d/c planning. Current CM Discharge plan: TBD Date Signed: 05/30/2018 04:41 PM Electronically Signed By:Parvin Thompson RN
[2018-05-30] MEDS ORDERED: ACETAMINOPHEN 500 MG TAB PO PRN (17:46)
--- NOTE | 2018-05-30 17:48 | HOSPPROG ---
Hospitalist Progress Note Assessment/Plan: * 4mm kidney stone - seems to have passed although patient with persistent flank pain -continue Flomax for now * UTI -IV ceftriaxone * Obesity with BELINDA - BMI 38 -continue CPAP * Chronic respiratory failure -at baseline O2 2L * ARF -still a little above baseline -continue IVF * CAD/stent Subjective: Still with severe left flank pain Objective: Vital Signs Temp Pulse Resp BP Pulse Ox 36.9 C 76 20 119/67 90 L 05/30/18 15:47 05/30/18 15:47 05/30/18 15:47 05/30/18 15:47 05/30/18 15:47 Laboratory Results 05/30/18 03:34 05/30/18 03:34 05/29/18 05/30/18 05/31/18 05:59 05:59 05:59 Intake Total 1713 550 Output Total 500 Balance 1213 550 d/w DR. Hernandez urology regarding possible stone procedure abd ct - stone has passed - Physical Exam Constitutional: no apparent distress, appears nourished, not in pain Cardiovascular: regular rate and rhythym, no murmur, rub, or gallop Respiratory: no respiratory distress, no rales or rhonchi, clear to auscultation Gastrointestinal: normoactive bowel sounds, soft, non-tender abdomen, no palpable masses Skin: no rashes or abrasions, no fluctuance, no induration Neurologic: AAOx3, sensation intact bilaterally Psychiatric: interacting appropriately, not anxious, not encephalopathic, thought process linear ICD10 Worksheet Patient Problems: Problems Problem Status Onset Lower abdominal pain Acute Renal calculus, left Acute Acute renal insufficiency Acute Ureterolithiasis Acute UTI (urinary tract infection), bacterial Acute Primary localized osteoarthritis of right knee Acute Urinary tract infection Acute GI bleed Acute Elevated serum lactate dehydrogenase Acute Hypotension Acute
--- NOTE | 2018-05-30 19:29 | PDMN ---
Medical Necessity Medical [place] [facility] [place] A-2 days: 73 yo w/ L flank pain and LLQ abd pain. Dx w/ ureterolithiasis, UTI and acute renal insufficiency acute on chronic. Initially OBS for workup and tx but pt requires additional MN for ongoing persistent, severe flank pain, IVF, IV antibx, urology consult, additional scans and serial labs. WBC still elevated. Creat still elevated above baseline. [place] [facility] for UTI w/ persistence of clinical findings/pain despite obs care tx, continued need for IV hydration support and continuation of parenteral antibxs. Hx chronic renal insufficiency, BELINDA w/ CPAP, chronic pul insufficiency s/p sepsis apr 2017, on O2 2-3L chronically, diverticulosis, colitis, angina, chronic back pain, CAD s/p 3 stents, TKA, obesity. Change to IP status 05/30/18@1043 per MD order.
[2018-05-30] MEDS: CALCIUM CARBONATE 500 MG CHEWABLE TAB PO PRN (19:48)
[2018-05-30] MEDS: CHOLECALCIFEROL VIT D3 2,000 UNITS TAB/CAP PO SCH (19:48)
[2018-05-30] MEDS: ROSUVASTATIN CALCIUM 10 MG TAB PO SCH (19:49)
[2018-05-30] MEDS: SENNOSIDES/DOCUSATE SODIUM TAB PO SCH (19:49)
[2018-05-30] MEDS: DOCUSATE SODIUM 100 MG CAP PO SCH (19:50)
[2018-05-30] MEDS: ASPIRIN 81 MG CHEWABLE TAB PO SCH (19:51)
[2018-05-31 04:42] LABS: PLATELET COUNT 258 10^3/uL (150-400)
[2018-05-31 07:33] VITALS: BP 143/68
[2018-05-31] MEDS: TAMSULOSIN HCL 0.4 MG CAP PO SCH (09:42)
[2018-05-31] MEDS: METOPROLOL SUCCINATE XR 25 MG TAB PO SCH (09:42)
[2018-05-31] MEDS: BUDESONIDE 3 MG EC CAP PO SCH (09:42)
[2018-05-31] MEDS: SENNOSIDES/DOCUSATE SODIUM TAB PO SCH (09:42)
[2018-05-31] MEDS ORDERED: AMOXICILLIN/CLAVULANATE POT 875/125 MG TAB PO SCH (10:00)
--- NOTE | 2018-05-31 11:51 | ASMTDCNOTE ---
Case Management Discharge Discharge Order Complete? Answers: Yes Patient to Obtain Answers: via Family Medications Transportation Arranged Answers: Family/Friends Transport will Pick (Date 05/31/2018 12:00 AM & Time) Family Notified Answers: Yes Notes: pt called son Discharge Comments Notes: Pt to discharge home independently. Pt has aide who comes daily to help around the house and son is nearby and can check. Pt not evaluated by therapies, but is comfortable with the plan. No CM needs identified at this time. Date Signed: 05/31/2018 11:50 AM Electronically Signed By:Aimee Nichole
--- NOTE | 2018-05-31 11:52 | ASMTLACE ---
LACE Length of stay for Answers: 1 day current admission Acuity / Level of Answers: Yes Care: Did the patient have an inpatient admission? Comorbidities - select Answers: Coronary Artery Disease all that apply Moderate or severe liver or renal disease Opioid dependence / Chronic pain Other Notes: Diverticulosis, kidney stones # of Emergency department Answers: 3-4 visits in the last 6 months Score: 18 Date Signed: 05/31/2018 11:52 AM Electronically Signed By:Aimee Nichole
--- NOTE | 2018-05-31 12:15 | ASDISCHSUM ---
Discharge Information Plan Status:Home with No Needs Medically Cleared to Leave:05/30/2018 Discharge Date:05/30/2018 CM D/C Disposition:Home, Routine, Self-Care ADT D/C Disposition:Home, Routine, Self-Care Projected Discharge Date:05/30/2018 Transportation at D/C:Family Discharge Delay Reason: Follow-Up Date:05/30/2018 Discharge Slot: Final Diagnosis:kidney stones Placement Information Patient Contact Information Contact Name:KYMBERLY Relationship:Ronald Address:[address] City:[place] Alternate Phone: State/Zip Code:[place] [address] Email: Financial Information Financial Class:Medicare Primary Plan Desc:MEDICARE OUTPATIENT Primary Plan Number:[id number] Secondary Plan Desc:[employer]/MDR SUPPLEMENT Secondary Plan Number:[id number] Assessment Information LACE LACE Length of stay for Answers: 1 day current admission Acuity / Level of Answers: Yes Care: Did the patient have an inpatient admission? Comorbidities - select Answers: Coronary Artery Disease all that apply Moderate or severe liver or renal disease Opioid dependence / Chronic pain Other Notes: Diverticulosis, kidney stones # of Emergency department Answers: 3-4 visits in the last 6 months Score: 18 Date Signed: 05/31/2018 11:52 AM Electronically Signed By:Aimee Nichole [facility] CM Progress Note CM Note CM Note Notes: Patient admitted for L sided flank pain. She was recently seen in the ED for the same and prescribed antibiotics for a UTI. Upon imaging, she has a kidney stone and is considering surgery. Urology following. PT/OT ordered. Case Management will follow for d/c planning. Current CM Discharge plan: TBD Date Signed: 05/30/2018 04:41 PM Electronically Signed By:Parvin Thompson RN Case Management Discharge Plan Note Case Management Discharge Discharge Order Complete? Answers: Yes Patient to Obtain Answers: via Family Medications Transportation Arranged Answers: Family/Friends Transport will Pick (Date 05/31/2018 12:00 AM & Time) Family Notified Answers: Yes Notes: pt called son Discharge Comments Notes: Pt to discharge home independently. Pt has aide who comes daily to help around the house and son is nearby and can check. Pt not evaluated by therapies, but is comfortable with the plan. No CM needs identified at this time. Date Signed: 05/31/2018 11:50 AM Electronically Signed By:Aimee Nichole Intervention Information Intervention Type:*RODRÍGUEZ-Signed Date of Service:05/30/2018 10:31 AM Patient Type:Observation Staff Member:Bisi Reed Hours: Discipline: Severity: Comment:
--- NOTE | 2018-05-31 16:20 | GDS ---
DISCHARGE DIAGNOSES: 1. 4 mm kidney stone status post spontaneous passage. 2. Urinary tract infection. 3. Obesity with obstructive sleep apnea. BMI 38. 4. Chronic respiratory failure, likely due to obesity. Baseline oxygen 2 L. 5. Acute renal failure. 6. Coronary artery disease, status post stent. 7. Microscopic colitis. HISTORY: Safia is a 73-year-old female who presented with left flank pain to the emergency room. S he was sent home for conservative management, but had persistent severe pain and re-presented to the emergency room and was subsequently admitted. Pain was persistent in her left lower quadrant and so we thought the stone had not passed out and Urology was consulted. Further imaging was obtained prio r to planned surgical procedure and showed that the stone actually had passed. The patient now think s her persistent left lower quadrant pain was more consistent with a flare of her microscopic colitis which she has frequently. Urine culture grew E coli and Enterococcus. We will discharge her on a short course of Augmentin. She was dehydrated on presentation with a creatinine of 1.6. With hydration, that has come back down to her baseline creatinine of 1.1. She can restart her losartan tomorrow. DISCHARGE MEDICATIONS: Please see computerized record for full detailed list. NEW MEDICATIONS: Augmentin 875 mg p.o. twice daily x3 days. ADDITIONAL DISCHARGE INSTRUCTIONS: Follow up with Primary Care. /[id number]/MODL
== END 2018-05-31 12:42 | disposition home or self-care (01) | DRG 392 ==
LOC: F2W 13:20 → OBSVTOIN 05-30 10:43
PROVIDERS: ADMIT Internal Medicine; ATTEND Internal Medicine
DX: K52.9 Noninfective gastroenteritis and colitis, unspecified (principal); N20.0 Calculus of kidney; N39.0 Urinary tract infection, site not specified; B96.20 Unspecified Escherichia coli [E. coli] as the cause of diseases classified elsewhere; B95.2 Enterococcus as the cause of diseases classified elsewhere; N17.9 Acute kidney failure, unspecified; I25.10 Atherosclerotic heart disease of native coronary artery without angina pectoris; G47.33 Obstructive sleep apnea (adult) (pediatric); J96.10 Chronic respiratory failure, unspecified whether with hypoxia or hypercapnia; E66.9 Obesity, unspecified; Z68.38 Body mass index [BMI] 38.0-38.9, adult; Z95.5 Presence of coronary angioplasty implant and graft; Z96.651 Presence of right artificial knee joint; Z99.81 Dependence on supplemental oxygen; Z87.891 Personal history of nicotine dependence
CPT/HCPCS: 96365; G0378; J0696; J3010; Q9967

== ENCOUNTER → 2018-06-26 | Outpatient (CLI) | payer OTHER, MEDICARE | LOC: FIMAGING 09:43 | PROVIDERS: ATTEND Internal Medicine | DX: R91.8 Other nonspecific abnormal finding of lung field (principal); J43.2 Centrilobular emphysema; I25.10 Atherosclerotic heart disease of native coronary artery without angina pectoris ==

== ENCOUNTER → 2018-08-27 | Outpatient (CLI) | payer OTHER, MEDICARE | LOC: FIMAGING 09:14 | PROVIDERS: ATTEND Internal Medicine Gastroenterology | DX: R07.89 Other chest pain (principal); K44.9 Diaphragmatic hernia without obstruction or gangrene; K22.9 Disease of esophagus, unspecified ==

== ENCOUNTER → 2018-09-24 | Outpatient (CLI) | payer OTHER, MEDICARE | LOC: BMCIMAGING 13:09 | PROVIDERS: ATTEND Internal Medicine | DX: Z12.31 Encounter for screening mammogram for malignant neoplasm of breast (principal); Z80.3 Family history of malignant neoplasm of breast ==